=== PATIENT | female | born 1955 | race Caucasian/White ===

== ENCOUNTER → 2017-12-08 15:04 | Outpatient (CLI) | payer OTHER, SELFPAY ==
[2017-12-13 10:18] LABS: HPV Reflexed? NOT INDICATED
== END ==
PROVIDERS: Family Provider Family Medicine; PCP Family Medicine; Visit Provider Family Medicine
DX: Z01.419 Encounter for gynecological examination (general) (routine) without abnormal findings (principal)
CPT/HCPCS: 88175; G0145

== ENCOUNTER 2018-01-07 17:51 | Emergency (ER) | payer OTHER, SELFPAY ==
[2018-01-07 17:53] VITALS: BP 149/74; PULSE 54; RESP 16; TEMP 36.5; O2SAT 98; BMI 27.9
--- NOTE | 2018-01-07 18:15 | CT_ITS ---
CT Abdomen And Pelvis W/O Contrast INDICATION: RT LOWER ABD PAIN THAT RADIATES TO BACKHX:KIDNEY STONES,SEIZURES-HAD BRAIN TUMOR REMOVEDCTDI 9.65 DLP 469.96 COMPARISON: January 2011 TECHNIQUE: axial CT examination of the abdomen and pelvis with coronal and sagittal reformatted images. FINDINGS: Visualized lung bases are clear. The heart size is normal. A calcified lesion is noted in the right breast. A small hiatal hernia is noted. A lobulated 3.5 cm hypodense lesion is seen in the right hepatic lobe, on previous contrast-enhanced CT noted to represent a hemangioma. The gallbladder is unremarkable. The spleen is normal in size. Bilateral large peripelvic renal cysts are again noted and a 3 cm right cortical renal cyst. There is moderate right-sided hydronephrosis and the right ureter is distended. A 3 mm calculus seen in the right distal ureter just proximal to the ureterovesicular junction. Bowel loops are nondistended. The appendix is unremarkable. The urinary bladder is decompressed. There is no evidence of free air or free fluid. Osseous structures demonstrate superior endplate compression deformity of T12, stable compared to 2010. Degenerative disc disease at L4-L5 and L5-S1, also not significantly changed. CT/Abdomen/Pelvis without Cont IMPRESSION: 3 mm calculus in the right distal ureter just proximal to the ureterovesicular junction with right-sided hydroureter and moderate hydronephrosis. Stable bilateral peripelvic renal cysts and 3 cm right cortical renal cyst. No evidence of residual renal calculi. Stable hepatic hemangioma. Normal appendix. Hiatal hernia. at 1922 Reported and signed by: Valeria Sandoval MD Electronically Signed: Valeria Sandoval MD at 19:21 EDT Tel , Service support ,
--- NOTE | 2018-01-07 18:16 | ED.VISSUMM ---
- ER Visit Summary Date of Service: 01/07/18 Chief Complaint: Right flank pain History of Present Illness: The patient is a 62 F presenting with right flank pain. She states that this started yesterday. She had several hours of pain yesterday. It improved and this afternoon it worsened again. It feels similar to her previous kidney stones. She denies dysuria or hematuria. She has nausea with no vomiting. Denies fever. Denies other complaints. Physical Examination: Vitals are stable. Patient is afebrile. Alert no acute distress. HEENT exam is unremarkable. Neck is supple. Lungs are clear and equal bilaterally. Heart is regular rate and rhythm. Abdomen is soft nontender nondistended. No guarding or rebound Back: Right CVA tenderness Extremities are unremarkable. Skin is warm and dry. No focal neurologic deficit. Remainder of exam is unremarkable. Emergency Department Course and Treatment: Patient given morphine, Zofran. Urinalysis is unremarkable. CT flank shows 3 mm calculus in the right distal ureter just proximal to the ureterovesicular junction with right-sided hydroureter and moderate hydronephrosis. Stable bilateral peripelvic renal cysts and 3 cm right cortical renal cyst. Normal appendix. She continues to have pain was given Dilaudid, Toradol, Phenergan. On reevaluation she is feeling much improved. She is given a prescription for Percocet and Phenergan for home. She is given Dr. Jaimes for follow-up. Advised return to ED if worsening complaints. Disposition: Discharge home Impression: Urolithiasis This note was generated with [employer] dictation software. It may contain incorrect words, spelling, and punctuation that were not noted in review of the chart prior to signing ED Disposition - Plan for ED Patient: Disposition: Home or Assisted Living Chief Complaint: Abd Pain Instructions: ED Stone Renal W Colic Prescriptions: Oxycodone HCl/Acetaminophen [Percocet 5/325] 1 tablet PO Q6H PRN PRN 3 Days #12 tablet PRN Reason: Pain proMETHazine tablet [Phenergan] 25 mg PO Q6H PRN PRN #10 tablet PRN Reason: Nausea Referrals: Alhaji Fong MD [Primary Care Provider] - Black Jaimes MD [STAFF PHYSICIAN] -
[2018-01-07] MEDS: Ondansetron 4 MG/2 ML Vial IV (18:31)
[2018-01-07] MEDS: Morphine 4 MG/ML Syringe IV (18:31)
[2018-01-07] MEDS: 0.9% Normal Saline 1,000 ML 999 ML IV (18:32)
[2018-01-07 18:42] LABS: Bacteria 0 SEEN /hpf (None Seen); Mucous, Urine 0 SEEN /hpf (<or=2+); Red Blood Cells-Urine 0 SEEN /hpf (0-5); White Blood Cells 0 SEEN /hpf (0-5)
[2018-01-07 18:44] VITALS: BP 161/84; PULSE 51; RESP 16; O2SAT 100
[2018-01-07 18:48] LABS: Color, Urine Yellow (Yellow); Glucose, Dipstick Normal (Normal); Ketone-Dipstick 15 mg/dl (Negative); Leukocyte Esterase-Dipstick Negative /ul (Negative); Nitrite-Dipstick Negative (Negative); Occult Blood-Urine Negative /ul (Negative); Protein-Dipstick Negative (Negative); Specific Gravity, Urine 1.025 (1.002-1.030); Urine Bilirubin Dipstick Negative (Negative); Urine Clarity Sl. Cloudy (Clear); Urine Urobilinogen Normal (Normal)
[2018-01-07 19:11] LABS: Squamous Epithelial Cells - UA 0-5 SEEN /hpf (5-10)
[2018-01-07] MEDS: proMETHazine 25 MG/ML Syringe 6.25 MG IV (20:16)
[2018-01-07] MEDS: Ketorolac 30 MG/ML Syringe IV (20:16)
[2018-01-07] MEDS: HYDROmorphone 1 MG/ML Syringe IV (20:16)
[2018-01-07 20:36] VITALS: BP 138/77; PULSE 48; RESP 14; O2SAT 92
--- NOTE | 2018-01-07 22:01 | ED.DEP ---
ED Disposition - Plan for ED Patient: Chief Complaint: Abd Pain Instructions: ED Stone Renal W Colic Prescriptions: Oxycodone HCl/Acetaminophen [Percocet 5/325] 1 tablet PO Q6H PRN PRN 3 Days #12 tablet PRN Reason: Pain proMETHazine tablet [Phenergan] 25 mg PO Q6H PRN PRN #10 tablet PRN Reason: Nausea Referrals: Alhaji Fong MD [Primary Care Provider] - Black Jaimes MD [STAFF PHYSICIAN] -
[2018-01-07] MEDS: oxyCODONE 5 MG Tablet PO (22:28)
[2018-01-07] MEDS: proMETHazine 25 MG Tablet PO (22:29)
[2018-01-07 22:31] VITALS: BP 144/90; PULSE 49; PULSE 51; RESP 18; O2SAT 96; O2SAT 97
== END 2018-01-07 22:32 | disposition home or self-care (01) ==
PROVIDERS: Emergency Provider Emergency Medicine; Family Provider Family Medicine; PCP Family Medicine
DX: N13.2 Hydronephrosis with renal and ureteral calculous obstruction (principal); Z87.442 Personal history of urinary calculi
CPT/HCPCS: 74176; 81001; 96361; 96374; 96375; 99282; J7030; A4216; J2405

== ENCOUNTER 2018-01-13 14:08 | Day surgery (SDC) | payer OTHER, SELFPAY ==
[2018-01-13] MEDS: HYDROmorphone 1 MG/ML Syringe IV (14:50)
[2018-01-13 14:56] VITALS: BP 170/91; PULSE 82; RESP 16; TEMP 36.7; O2SAT 100; BMI 26.6
[2018-01-13] MEDS: Cefazolin 2 GM in 0.9% Normal Saline 100 ML IV (16:08)
--- NOTE | 2018-01-13 16:13 | PCM.DC.URO ---
Discharge Diet: Light diet - advance as tolerated Discharge Activity: May not drive while taking narcotic pain medications., May Shower Return to work on:: 01/18/18 Call your doctor if your incision/area has: Continuous Slow Oozing, Sudden Increased Bleeding, Increased Pain/ Swelling, Increased Redness, Foul Smelling Discharge, Swelling at the incision site Instructions: Treating Kidney Stones: Ureteroscopic Stone Removal Allergies/Adverse Reactions: Allergies Penicillins Adverse Reaction (Severe, Verified 01/07/18 17:55) Rash Medications to take at Discharge escitalopram 10 mg tablet 10 mg PO QDAY 11/24/17 acetaminophen 500 mg tablet 500 mg PO Q6H PRN 11/27/17 levetiracetam 1,000 mg tablet 1,000 mg PO BID tab 11/27/17 Oxycodone HCl/Acetaminophen [Percocet 5/325] 1 tablet PO Q6H PRN PRN 3 Days #12 tablet 01/07/18 proMETHazine tablet [Phenergan] 25 mg PO Q6H PRN PRN #10 tablet 01/07/18 Biotin 10 mg PO DAILY 01/12/18 Ciprofloxacin [Cipro] 500 mg PO BID #10 tab 01/13/18 Hydrocodone/Acetaminophen [[place] 5-325 Tablet] 1 ea PO Q4H PRN PRN 5 Days #20 tab 01/13/18 Phenazopyridine HCl [Pyridium] 100 mg PO TID PRN PRN #20 tab 01/13/18 Tamsulosin HCl [Flomax] 0.4 mg PO DAILY #10 cap.er.24h 01/13/18 The following prescriptions were given: Hydrocodone/Acetaminophen [[place] 5-325 Tablet] 1 ea PO Q4H PRN PRN 5 Days #20 tab PRN Reason: Pain Phenazopyridine HCl [Pyridium] 100 mg PO TID PRN PRN #20 tab PRN Reason: burning. Tamsulosin HCl [Flomax] 0.4 mg PO DAILY #10 cap.er.24h Ciprofloxacin [Cipro] 500 mg PO BID #10 tab Primary Care Physician: Alhaji Fong MD [Primary Care Provider] - Please Follow Up With: Black Jaimes MD When: ThursdayJanuary 19 at 9:15 am to remove stent
--- NOTE | 2018-01-13 16:38 | OP.PCM_ITS ---
Report of Operation Date of Procedure: 01/13/18 Pre-Operative Diagnosis: Right ureteral calculi causing severe renal colic Post-Operative Diagnosis: Same Surgery/Procedure Performed:: Cystoscopy, balloon dilation of the right ureter, right ureteroscopy basket extraction of stone and right stent placement Description of Surgical Findings:: 62-year-old female presented to the office with severe renal colic from the distal right ureteral calculi about 3 mm in size but she was in so much pain and discomfort not controlled by medication therefore recommended intervention. Patient was taken back to the operating room at the smooth induction of anesthesia she was placed supine on the table the urethra and vaginal area were prepped and draped in usual sterile fashion. Dilated the urethra with a 17 Hungarian sound and then used the loading unit operator seating and place a 21 Hungarian rigid cystourethroscope into the bladder, immediately could see an inflamed swollen right distal ureter. Used a Glidewire and was able to get into the ureter and advanced past the stone. I then used a balloon dilator the 12 Hungarian 10 cm balloon dilator and balloon dilated the distal ureter. I then was able to perform rigid ureteroscopy got into the distal ureter fairly easily and then used the basket and extracted a 3 mm stone from the distal ureter. Then I loaded the stent up over the wire but the stent in place with a string for extraction a few days. Emptied the bladder and patient anesthetic is being reversed. Type of Anesthesia:: General Drains: stent right side - Admit VTE Documentation VTE Present on Admission: No VTE Mechan Device Prophylaxis: SCD's VTE Pharm Prophylaxis ordered?: No Reason prophylaxis not ordered:: Treatment Not Indicated
[2018-01-13 16:45] VITALS: BP 134/76; BP 170/91; PULSE 69; RESP 18; TEMP 36.7; O2SAT 95
[2018-01-13] MEDS: Ketorolac 15 MG/ML Vial IV (16:53)
[2018-01-13 17:00] VITALS: BP 140/85; BP 170/91; PULSE 72; RESP 18; O2SAT 100
[2018-01-13 17:08] VITALS: BP 143/88; BP 170/91; PULSE 70; RESP 18; TEMP 36.6; O2SAT 100
[2018-01-13 17:28] VITALS: BP 170/91
--- NOTE | 2018-01-14 | CALC_PTH ---
PATIENT: CHIRAG RODRÍGUEZ [place] [facility] [place][id number] AGE/SX: 62/F ROOM: RE01/13/[address]: Dr. Black Jaimes MD : 1955 BED: DIS: 01/13/2018 SPEC #: [id number] RECD: 01/14/18 12:20 STATUS: ROCK YOLANDE #: [id number] PINKY: 01/14/18 00:[address]: Black Jaimes DEPT: SURGICAL PATHOLOGY RECD BY: Denilson Aleman ENTERED: 01/14/18 12:20 SP TYPE: Calculi OTHR DR: Dr. Alhaji Fong MD Tissues: CALCULI Procedures: Surgery Specimen Level I HEADER OPERATION: Right ureteroscopy, basket stone extraction PRE-OP DIAGNOSIS: Right ureteral calculus TISSUE SUBMITTED: Calculi, urinary GROSS DIAGNOSIS Right ureteral calculus, removal: Unremarkable calculus (gross diagnosis only). AM:vernon 01/15/18 COMMENT The calculus is submitted in its entirety for chemical stone analysis. The results from this study will be reported separately. GROSS DESCRIPTION Received is one container labeled with the patient's name and designated calculi urinary. The specimen consists of a single irregular fragment of kolb calculus measuring 0.2 x 0.2 x 0.1 cm. The calculus is submitted in its entirety for chemical stone analysis. / AM:vernon 01/14/18 TC:5 CPT: 07175
[2018-01-22 14:07] LABS: Ca Oxalate, Dihydrate 10 % (.); Ca Oxalate, Monohydrate 85 % (.)
== END 2018-01-13 17:40 | disposition home or self-care (01) ==
LOC: SDC 14:09 → AC 14:11
PROVIDERS: Family Provider Family Medicine; PCP Family Medicine; Visit Provider Urology
PROC: 0TJ98ZZ Inspection of Ureter, Via Natural or Artificial Opening Endoscopic (ICD-10-PCS; CPT 52352; principal; 2018-01-13 15:40)
DX: N20.1 Calculus of ureter (principal); Z87.442 Personal history of urinary calculi; G40.909 Epilepsy, unspecified, not intractable, without status epilepticus; F32.9 Major depressive disorder, single episode, unspecified; F41.9 Anxiety disorder, unspecified; I49.1 Atrial premature depolarization; I49.3 Ventricular premature depolarization; R00.0 Tachycardia, unspecified; Z79.899 Other long term (current) drug therapy
CPT/HCPCS: 52332; 52352; 76000; 82360; 88300; J7120; C1769; C2617

== ENCOUNTER 2018-04-05 07:10 | Day surgery (SDC) | payer OTHER, SELFPAY ==
[2018-04-05 07:25] VITALS: BP 124/64; PULSE 53; RESP 16; TEMP 36.6; O2SAT 100; BMI 26.2
--- NOTE | 2018-04-05 08:05 | HP.PCM_ITS ---
History and Physical Date of Admission: 04/05/18 HISTORY AND PHYSICAL ? Mary Dumont 1955 ? REFERRING PHYSICIAN: ~~Grey Ortiz, DO ? CHIEF COMPLAINT: ~~LLQ pain ? HPI: The patient is a 62 year old female referred for endoscopy. ~Mary notes the following GI complaints: ~~Mary notes abdominal pain. ~~~The pain occurs in the following locations: ~LLQ . ~Mary denies~diarrhea. ~~Mary denies~ constipation. ~Mary denies~a change in bowel habits. ~Mary denies~melena. ~ Mary denies~bright red blood per rectum. ~~~Mary denies~hemorrhoids. ~~She feels her pain may be due to her Keppra dose, but she is due for colonoscopy due to a personal history of colon polyps ? The patient ~notes no history of upper GI complaints. ? Mary has ~undergone prior endoscopy. ~She underwent colonoscopy in March 27, 2015 which demonstrated an adenomatous polyp. ~The patient also has a first- degree relative with colon cancer. ? The patient underwent a craniotomy in October this year for seizures and had removal of a left medullary tumor. ? The patient had a kidney stone earlier this year and underwent sedation for treatment of her kidney stone at [facility] since her craniotomy. ~She had no untoward anesthetic events. ? The patient is being seen by me today at the request of Dr. Alhaji Fong MD~ for my opinion and advice regarding lower quadrant pain and follow-up for personal history of colon polyps and family history of colon cancer. ? ? PAST MEDICAL HISTORY PAST MEDICAL HISTORY Diagnosis Date ? Arrhythmia ? ? Arthritis ? ? Depression 04/27/2017 ? Diffuse cystic mastopathy ? ? Dizziness, nonspecific ? ? Kidney stone 04/27/2017 ? NEGATIVE MEDICAL HISTORY ? ? Seizure (HCC) ? ? Syncope ? ? ? PAST SURGICAL HISTORY PAST SURGICAL HISTORY Procedure Laterality Date ? COLONOS W/REM POLYP SNARE ? 03/27/15 ? adenomatous polyp - 3 year follow up ? COLONOSCOP W/ OR W/O BRSH SPEC ? 04/19/2007 ? normal ? REDUCTION OF LARGE BREAST ? 1990 ? ? bilateral ? W KIT CRAINIAL ACSS TWIST DRILL Left 10/2017 ? for medullary tumor ? ? CURRENT MEDICATIONS ? Current Outpatient Prescriptions: levETIRAcetam (KEPPRA) 1,000 mg tablet Take 1 tablet by mouth twice daily. escitalopram oxalate (LEXAPRO) 10 mg tablet TAKE 1 TABLET DAILY docusate sodium (COLACE) 100 mg capsule Take 1 capsule by mouth twice daily as needed for Constipation. (Patient not taking: Reported on 11/23/2017 ) acetaminophen (TYLENOL EXTRA STRENGTH) 500 mg tablet Take 500 mg by mouth as needed. CALCIUM CARBONATE/VITAMIN D3 (CALTRATE WITH VITAMIN D3 ORAL) Take 1 tablet by mouth once daily. Cholecalciferol, Vitamin D3, (VITAMIN D-3) 2,000 unit cap Take 2,000 Units by mouth once daily. BIOTIN ORAL Take 1 tablet by mouth once daily. ? No current facility-administered medications for this visit. ? ALLERGIES: Penicillins ? PERSONAL HISTORY: SOCIAL HISTORY Social History ~~Marital status: ~~~~~~~~~~~~Spouse name: ~~~~~~~~~~~~~~~~~~ ~~Years of education: ~~~~~~~~~~~~~~~~Number of children: ~~~~~~~~~~ ? Social History Main Topics ~~Smoking status: Never Smoker ~~~~~~~~~~~~~~~~~~~~~~~~~~~~~~~~~~~~~~~~~~~~~~~~~ ~~~~~~~~ ? ~~Smokeless tobacco: Never Used ~~~~~~~~~~~~~~~~~~~ ~~Alcohol use: Yes ~~~~~~~~ ~~~~~Comment: SOCIALLY ~~Drug use: No ~~~~~~~~~ ~~Sexual activity: Yes ~~~~~~~~~~~~~~Partners with: Male ~~~~~ control/protection: Vasectomy ? ? FAMILY HISTORY: FAMILY HISTORY FAMILY HISTORY Problem Relation Age of Onset ? Breast Cancer Other ? ? ? maternal cousin ? Breast Cancer Maternal Aunt ? ? Coronary Artery Disease Father ? ? Heart Father ? ? Hypertension Father ? ? Stroke Father ? ? Colon Cancer Father ? ? Heart Paternal Grandfather ? ? Psychiatry Paternal Grandmother ? ? Cancer Other ? ? ? colon,abdomen, and appendix ? Arthritis Brother ? ? REVIEW OF SYMPTOMS: ~~The review of systems data was entered by the nurse and reviewed by me ? Nursing Notes: [place] ANA LAURA ~02/25/2018 ~9:27 AM ~Signed REVIEW OF SYSTEMS: ~~~~~General:~~~The patient denies fatigue, NOTES weight loss, denies weight gain, denies feeling hot, and denies feelings of cold. ~~~~~Eyes: ~The patient denies glaucoma, NOTES eye injury/surgery, does not wear glasses or contacts. ~~~~~Ear/Nose/Throat: ~The patient NOTES allergies, denies hayfever, denies ear infections, and denies bloody noses. ~~~~~Cardiovascular: ~The patient denies chest pain, denies heart disease, denies high blood pressure,denies cardiac stent, denies prior heart attack, denies irregular heart beat, NOTES high cholesterol, ~denies poor circulation, denies heart failure, other cardiac issues, denies claudication, denies cold feet, denies peripheral arterial stent. ~~~~~Respiratory: ~The patient denies tuberculosis, denies pneumonia, denies frequent cough, denies pulmonary embolism, denies shortness of breath, and denies coughing up blood. ~~~~~Gastrointestinal: ~The patient denies difficulty swallowing, denies acid reflux, denies ulcers, denies vomiting, denies jaundice/hepatitis, denies gallbladder problems, denies black or tarry stools, denies hemorrhoids, denies bleeding from rectum, denies diverticulitis, NOTES constipation, denies diarrhea , denies loss of stool control, and denies hernias. ~~~~~Kidney/Bladder: ~The patient NOTES kidney stones, denies urine infections, and denies bloody urine. ~~~~~Skin: ~The patient denies a history of skin cancer, denies bleeding/ changing moles, and denies a history of skin rash. ~~~~~Neurologic: ~The patient NOTES a history of epilepsy/convulsions, NOTES headaches, denies head/spinal injuries, and denies stroke/TIA. ~~~~~Psychiatric: ~The patient denies psychiatric medications, NOTES depression , and denies voices, denies substance abuse. ~~~~~Endocrine: ~The patient denies thyroid disorders, denies diabetes, and denies hormonal problems. ~~~~~Hematologic: ~The patient NOTES a history of bruising, NOTES bleeding, and denies anemia, denies blood clots. ~~~~~Infections: ~The patient denies a history of measles and mumps, denies rheumatic fever, and denies sexually transmitted diseases. ~~~~~Musculoskeletal: ~The patient NOTES back pain/injury, denies back problems , NOTES sciatica, denies knee/foot trouble, denies arthritis, or denies gout. ? ? When was patient's last Mammogram screening? 02/22 ? ? ~Last Colonoscopy: ~? ? [place] LPN ~ PHYSICAL EXAMINATION: ? General: ~The patient is 62 year old female, well nourished, well hydrated in no acute distress. ~The patient is oriented to time, place, and person. ? VITALS: Blood pressure 122/68, pulse 68, weight 72.7 kg (160 lb 3.2 oz), last menstrual period 06/10/2004.~Body mass index is 26.25 kg/m?.~ ? HEENT: ~Normal cephalic, ataumatic, pupils are equally round, sclera are anicteric, mucous membranes are moist, oropharynx is clear. ~Neck has no masses , asymmetry or lymphadenopathy. ~Thyroid is unremarkable. ? Respiratory: ~Clear to auscultation and percussion. ~Normal respiratory excursion and pattern. ? Cardiac: ~Examination is regular rate and rhythm. ? Abdominal exam: ~Soft, nontender, ~with no palpable masses. ~No hepatosplenomegaly. ~No palpable hernias. ? Rectal exam: exam deferred ? Extremities: ~no clubbing, cyanosis or edema. ~No adenopathy. ? Other: ? LABORATORY VALUES: As Noted ? RADIOLOGIC STUDIES: ~As Noted ? Assessment ~ IMPRESSION: Personal history of colon polyps, family history of colon cancer, left lower quadrant pain, recent craniotomy ? PLAN: ~I plan to perform lower~endoscopy. ~~We discussed the risks and benefits of the planned endoscopy. ~I have informed the patient that complications can occur including failure to complete the endoscopy and perforation. ~The patient had the opportunity to ask questions concerning the planned endoscopy. ~My staff has also explained the procedure to the patient in understandable terms and has given the patient printed material concerning the procedure. ~The patient freely consents to surgery. ? I plan to use golytely bowel preparation for endoscopy ? I plan to perform the procedure under monitored anesthetic care. ~The patient requests [facility]. ? ? Diagnoses: (Z80.0) Family history of colon cancer ~(primary encounter diagnosis) (Z86.010) Personal history of colonic polyps (R10.32) LLQ pain (D33.2) Benign neoplasm of brain, unspecified brain region (HCC) ? A letter was sent to Dr. Alhaji Fong MD~indicating the above finding for this patient. ~~ Return to Clinic: The patient is instructed to follow-up with me after the testing has been completed. ? Anthony Fraga MD
[2018-04-05 08:27] VITALS: BP 122/70; BP 124/64; PULSE 57; RESP 14; TEMP 36.3; O2SAT 100
--- NOTE | 2018-04-05 08:29 | PCM.OPRPT ---
Report of Operation Date of Procedure: 04/05/18 Pre-Operative Diagnosis: PERSONAL HISTORY OF COLON POLYPS, FAMILY HISTORY OF COLON CANCER Post-Operative Diagnosis: PERSONAL HISTORY OF COLON POLYPS, FAMILY HISTORY OF COLON CANCER, NORMAL COLONSCOPY Surgery/Procedure Performed:: COLNOSCOPY carpet cutter: None Type of Anesthesia:: MAC Anesthesiologist: Niels Bustos - ASA3 Specimen's removed: NONE Description of Procedure: The patient was brought to the endoscopy suite. Sign in was performed verifying patient, site, planned procedure, critical nursing information, the patient was monitored with cardiac, pulse oximetric, and blood pressure monitoring devices. Monitored anesthetic care was provided for sedation. Following IV sedation, the patient was positioned for colonoscopy. A digital rectal exam was performed which revealed no palpable abnormalities The video colonoscope was inserted and advanced to the cecum as verified by the ileocecal valve, cecal base anatomic features and palpation. the cecum, ileocecal valve, ascending colon, hepatic flexure, splenic flexure, descending colon and rectosigmoid all were unremarkable. The scope was retroflexed and the internal anal verge appeared unremarkable. The patient tolerated the procedure well and was brought to recovery in stable condition. The patient has a family history of colon cancer. I recommend 5 year follow-up colonoscopy. The patient does not need to follow up in the office unless they have additional questions. - Admit VTE Documentation VTE Present on Admission: No VTE Mechan Device Prophylaxis: SCD's
[2018-04-05 08:30] VITALS: BP 118/68; BP 124/64; PULSE 59; RESP 14; O2SAT 100
--- NOTE | 2018-04-05 08:32 | OP.PCM_ITS ---
Report of Operation Date of Procedure: 04/05/18 Pre-Operative Diagnosis: PERSONAL HISTORY OF COLON POLYPS, FAMILY HISTORY OF COLON CANCER Post-Operative Diagnosis: PERSONAL HISTORY OF COLON POLYPS, FAMILY HISTORY OF COLON CANCER, NORMAL COLONSCOPY Surgery/Procedure Performed:: COLNOSCOPY manager leadership development: None Type of Anesthesia:: MAC Anesthesiologist: Niels Bustos - ASA3 Specimen's removed: NONE Description of Procedure: The patient was brought to the endoscopy suite. Sign in was performed verifying patient, site, planned procedure, critical nursing information, the patient was monitored with cardiac, pulse oximetric, and blood pressure monitoring devices. Monitored anesthetic care was provided for sedation. Following IV sedation, the patient was positioned for colonoscopy. A digital rectal exam was performed which revealed no palpable abnormalities The video colonoscope was inserted and advanced to the cecum as verified by the ileocecal valve, cecal base anatomic features and palpation. the cecum, ileocecal valve, ascending colon, hepatic flexure, splenic flexure, descending colon and rectosigmoid all were unremarkable. The scope was retroflexed and the internal anal verge appeared unremarkable. The patient tolerated the procedure well and was brought to recovery in stable condition. The patient has a family history of colon cancer. I recommend 5 year follow-up colonoscopy. The patient does not need to follow up in the office unless they have additional questions. - Admit VTE Documentation VTE Present on Admission: No VTE Mechan Device Prophylaxis: SCD's
[2018-04-05 08:35] VITALS: BP 101/68; BP 124/64; PULSE 65; RESP 14; O2SAT 100
[2018-04-05 08:37] VITALS: BP 124/64; BP 97/85; PULSE 62; RESP 14; TEMP 36.4; O2SAT 100
[2018-04-05 09:05] VITALS: BP 124/64
== END 2018-04-05 09:09 | disposition home or self-care (01) ==
LOC: EN 07:12 → AC 07:12
PROVIDERS: Family Provider Family Medicine; PCP Family Medicine; Visit Provider Surgery
PROC: 0DJD8ZZ Inspection of Lower Intestinal Tract, Via Natural or Artificial Opening Endoscopic (ICD-10-PCS; CPT 45378; principal; 2018-04-05 07:55)
DX: Z86.010 Personal history of colon polyps (principal); R10.32 Left lower quadrant pain; Z80.0 Family history of malignant neoplasm of digestive organs; I49.1 Atrial premature depolarization; I49.3 Ventricular premature depolarization; F32.9 Major depressive disorder, single episode, unspecified; M19.90 Unspecified osteoarthritis, unspecified site; Z98.890 Other specified postprocedural states; Z86.69 Personal history of other diseases of the nervous system and sense organs; Z79.899 Other long term (current) drug therapy
CPT/HCPCS: 45378; J7120

== ENCOUNTER → 2018-07-13 10:49 | Outpatient (CLI) | payer OTHER, SELFPAY ==
[2018-07-13 12:46] LABS: Cholesterol 261 mg/dL (200); Glucose 84 mg/dL (74-106); Hemoglobin A1c 5.8 % (4.2-6.3); High Density Lipoprotein 88 mg/dL; Triglycerides 76 mg/dL; Very Low Density Lipoprotein 15 mg/dL (5-40)
== END ==
PROVIDERS: Family Provider Family Medicine; PCP Family Medicine; Referring Provider Family Medicine; Visit Provider Family Medicine
DX: E78.5 Hyperlipidemia, unspecified (principal); R73.9 Hyperglycemia, unspecified
CPT/HCPCS: 36415; 80061; 82947; 83036

== ENCOUNTER → 2019-01-14 14:36 | Outpatient (CLI) | payer OTHER, SELFPAY ==
[2018-12-13 10:05] VITALS: BMI 25.9
--- NOTE | 2019-01-14 14:46 | CT_ITS ---
STUDY: CT ABDOMEN AND PELVIS WITH CONTRAST REASON FOR EXAM: Female, 63 years old. Left lower quadrant pain RADIATION DOSAGE (If Supplied By Facility): CTDIvol = ( 15.86 ) mGy, DLP = ( 1363.76 ) mGycm TECHNIQUE: Transaxial images were obtained from the dome of the diaphragm to the symphysis pubis without oral contrast. 100CC IV/Oral Isovue 300 was administered. Sagittal and coronal images were reconstructed. Individualized dose optimization techniques were used for this CT. COMPARISON: Prior study of 01/07/2018 FINDINGS: The visualized lung bases are unremarkable. The visualized portions of the heart are within normal limits. There is an enhancing 3.6 cm lesion of the posterior right hepatic lobe with a typical appearance of a hemangioma. There are several additional subcentimeter probable cysts of the liver. Normal gallbladder and extrahepatic biliary system. Normal spleen. There is mild dilatation of the pancreatic duct measuring up to 3 mm. Normal bilateral adrenal glands. There is a 5.5 cm right renal cyst. There are multiple left renal parapelvic cysts there is no hydronephrosis. There is a small hiatal hernia. Normal small intestine. Normal colon. The appendix is visualized and appears normal. Normal abdominal aorta. Normal inferior vena cava. Normal retroperitoneum. Normal urinary bladder. The uterus and adnexal structures are unremarkable. Normal abdominal wall. There are degenerative changes of the lumbar spine at the L4-5 and L5-S1 level. There is old compression deformity of the superior endplate of T12, stable in the interval. CT/Abdomen/Pelvis WITH Contrast IMPRESSION: 1. Enhancing 3.6 cm lesion of the posterior right hepatic lobe with a typical appearance of hemangioma. This is similar in size to the prior study of 01/07/2018. There are several additional subcentimeter probable cysts of the liver. 2. Mild dilatation pancreatic duct measuring up to 3 mm. 3. 5.5 cm right renal cyst. Multiple left renal parapelvic cysts. 4. Small hiatal hernia. 5. Degenerative changes of the lumbar spine. Old compression deformity of the superior endplate of T12, stable in the interval. 6. There is no evidence of free intra-abdominal or intrapelvic air, fluid, or inflammatory process. Electronically Signed: Christian Gomez MD at 16:23 EDT , Service support ,
[2019-01-14 15:06] LABS: CREATININE FINGERSTICK 0.8 mg/dL (0.55-1.02)
== END ==
PROVIDERS: Family Provider Family Medicine; PCP Family Medicine; Referring Provider Family Medicine; Visit Provider Family Medicine
DX: R10.32 Left lower quadrant pain (principal)
CPT/HCPCS: 74177; Q9967

== ENCOUNTER → 2019-04-08 08:14 | Outpatient (CLI) | payer OTHER, SELFPAY ==
[2018-12-13 10:05] VITALS: BMI 25.9
--- NOTE | 2019-04-08 08:17 | BI_ITS ---
MAMMOGRAPHY - BILATERAL SCREENING REASON FOR EXAM: Female, 63 years old. Routine annual screening examination. PERTINENT HISTORY: Aunt with breast cancer. History of prior bilateral breast reduction surgery. TECHNIQUE: Digital bilateral breast karine (3D mammographic acquisition) in the CC and MLO projections. 2-D mediolateral oblique (MLO) and craniocaudad (CC) views of both breasts were obtained. CAD: Full Field Digital Mammography with Computer Added Detection was performed. COMPARISON: Comparison is made with prior outside examination dated February 17, 2018. FINDINGS: Breast Composition: The breasts are heterogeneously dense, which may obscure small masses. There are no dominant masses or suspicious calcifications. Stable 1.6 cm x 1.2 cm calcified nodule in the deep slightly inferior central portion of the right breast suggestive of a calcifying fibroadenoma. No other significant abnormalities are identified. There has been no significant change since the prior study. BI/SCREEN MAMM (CAD) W/KARINE BILAT IMPRESSION: Stable bilateral screening mammogram. Yearly follow-up mammogram recommended. (A) ASSESSMENT CATEGORY: BIRADS Category 2: Benign. A letter regarding these results will be sent to the patient by the facility within 30 days. Approximately 10% of breast cancers are not detected by mammography. A normal mammogram should not delay biopsy of a clinically suspicious abnormality. [id number] Electronically Signed: Eric Judge, at 10:06 EDT , Service support ,
--- NOTE | 2019-04-08 09:29 | MRI_ITS ---
STUDY: MR PELVIS WITH T WITHOUT CONTRAST REASON FOR EXAM: Female, 63 years old. Left ovarian cyst/mass. Left-sided abdominal and pelvic discomfort on and off for several years. TECHNIQUE: Standardized fat and water weighted pulse sequences were obtained in all 3 orthogonal planes, pre-and post contrast administration. 15 IV Dotarem was administered for the contrast portion of the examination. COMPARISON: CT abdomen and pelvis 01/14/2018, 01/07/2018. FINDINGS: On prior CT imaging of 01/14/2019, normal appearing bilateral ovaries, no adnexal mass or cyst, normal appearance of uterus, no pelvic lymphadenopathy. There is no inguinal or iliac chain lymphadenopathy. No perirectal lymphadenopathy. Normal features of the evaluated portions of the small and large bowel. Normal distal ureters, urinary bladder, and retroverted uterus with normal slender endometrium and normal myometrium. Normal fallopian tubes. Diminutive normal right ovary containing a very tiny follicle measuring about 2 mm. Normal size of the left ovary. The left ovary contains 4 follicles, the largest of which measures 10 mm. Simple cystic features. Otherwise unremarkable morphology. There is normal enhancement of the adnexal vessels. There is no cul-de-sac free fluid. MRI/Pelvis W/WO Contrast IMPRESSION: Small follicles of the left ovary, the largest of which measures 10 mm. Unremarkable right ovary. No acute intrapelvic process is evident. Electronically Signed: Anthony Winter MD at 14:13 EDT Tel , Service support ,
[2019-04-08 10:21] LABS: CREATININE FINGERSTICK < 0.6 mg/dL (0.55-1.02); EGFR FINGERSTICK > 60.0000 mL/min (>60)
== END ==
PROVIDERS: Family Provider Family Medicine; PCP Family Medicine; Referring Provider Obstetrics & Gynecology; Visit Provider Obstetrics & Gynecology
DX: Z12.31 Encounter for screening mammogram for malignant neoplasm of breast (principal); Z80.3 Family history of malignant neoplasm of breast; N83.202 Unspecified ovarian cyst, left side; R10.2 Pelvic and perineal pain
CPT/HCPCS: 72197; 77063; 77067; A9575

== ENCOUNTER → 2019-04-21 10:18 | Outpatient (CLI) | payer OTHER, SELFPAY ==
[2018-12-13 10:05] VITALS: BMI 25.9
[2019-04-21 12:02] LABS: Absolute Lymphocyte Count 1.57 X10^3/uL (0.83-4.51); Absolute Neutrophil Count 1.5 X10^3/uL (2.0-7.7); Basophil# 0.05 X10^3/uL; Basophil% 1.4 % (0-1); Eosinophils% 2.8 % (0-5); Hematocrit 39.7 % (37-47); Hemoglobin 12.9 g/dL (12.0-15.0); Lymphocyte # 1.57 X10^3/ul (4.0); Lymphocyte % 44.4 % (19-41); Mean Corp Hgb Conc 32.5 g/dL (32-36); Mean Corpuscular Hgb 29.2 pg (27.0-32.0); Mean Corpuscular Volume 89.8 fL (81-99); Mean Platelet Vol. 8.8 fl (6.2-12.0); Monocyte# 0.32 X10^3/uL; NRBC Flagged by Analyzer 0 % (0-5); Neutrophil # 1.49 X10^3/uL (2.7-7.7); Neutrophil % 42.1 % (47-70); Platelet Count 234 K/mm3 (150-450); RBC Distribution Width CV 13.9 % (11.6-14.6); RBC Distribution Width SD 45.5 fl (35.1-43.9); Red Blood Count 4.42 M/mm3 (4.2-5.4); White Blood Count 3.5 K/mm3 (4.4-11.0)
[2019-04-21 12:17] LABS: Vitamin D,25 Hydroxy 55.2 ng/mL (29.95-100.01)
[2019-04-21 12:21] LABS: Anion Gap 6 (5-15); BUN 14 mg/dL (7-18); Calcium,Total 8.8 mg/dL (8.5-10.1); Chloride 109 mmol/L (98-107); Cholesterol 209 mg/dL (200); Creatinine, Serum 0.74 mg/dL (0.55-1.02); EST Glomerular Filtration Rate 85 mL/min (>60); Est Glom Filt Rate - Afr Amer 102 mL/min (>60); Glucose 82 mg/dL (74-106); High Density Lipoprotein 80 mg/dL; Potassium 4.1 mmol/L (3.5-5.1); Sodium Level 142 mmol/L (136-145); Thyroid Stim Hormone (TSH) 3.11 uIU/mL (0.358-3.74); Triglycerides 70 mg/dL; Very Low Density Lipoprotein 14 mg/dL (5-40)
[2019-04-21 17:52] LABS: Hemoglobin A1c 5.5 % (4.2-6.3)
== END ==
PROVIDERS: Family Provider Family Medicine; PCP Family Medicine; Referring Provider Family Medicine; Visit Provider Family Medicine
DX: E03.9 Hypothyroidism, unspecified (principal); G40.109 Localization-related (focal) (partial) symptomatic epilepsy and epileptic syndromes with simple partial seizures, not intractable, without status epilepticus; E78.5 Hyperlipidemia, unspecified; R53.83 Other fatigue; R73.9 Hyperglycemia, unspecified; R03.0 Elevated blood-pressure reading, without diagnosis of hypertension
CPT/HCPCS: 36415; 80048; 80061; 82306; 83036; 84443; 85025

== ENCOUNTER 2019-08-15 11:50 | Day surgery (SDC) | payer OTHER, SELFPAY ==
[2018-12-13 10:05] VITALS: BMI 25.9
--- NOTE | 2019-08-14 11:18 | HP.PCM_ITS ---
History and Physical Date of Admission: 08/15/19 HISTORY AND PHYSICAL ? Mary Dumont 1955 ? REFERRING PHYSICIAN: ??Self ? CHIEF COMPLAINT: ??Change In Bowel Habits ? HPI: The patient is a 63 year old female referred for endoscopy. ?Mary notes worsening left lower quadrant discomfort with what she describes as pain which doubles her over at night. ? ? I had seen the patient in the past for left-sided abdominal pain which was more mild. ? At that time in mid 2017, Mary notes the following GI complaints: ??Mary notes abdominal pain. ???The pain occurs in the following locations: ?LLQ . ?Mary denies diarrhea. ??Mary denies constipation. ?Mary denies a change in bowel habits. ?Mary denies melena. ?Mary denies bright red blood per rectum. ???Mary denies hemorrhoids. ??She feels her pain may be due to her Keppra dose, but she is due for colonoscopy due to a personal history of colon polyps ? The patient ?notes no history of upper GI complaints. ? Mary has ?undergone prior endoscopy. ?She underwent colonoscopy in March 27, 2015 which demonstrated an adenomatous polyp. ?The patient also has a first-d egree relative with colon cancer. ? The patient underwent a craniotomy in October this year for seizures and had removal of a left medullary tumor. ? The patient had a kidney stone earlier this year and underwent sedation for treatment of her kidney stone at [facility] since her craniotomy. ?She had no untoward anesthetic events. ? The patient is being seen by me today at the request of Dr. Alhaji Fong MD for my opinion and advice regarding lower quadrant pain and follow-up for personal history of colon polyps and family history of colon cancer ? I performed lower endoscopy on the April 05, 2018. ?The patient was found to have an unremarkable colonoscopy. ? The patient notes still some left-sided complaints since the procedure. ?Overall, she feels this is related to her medication for her seizure disorder-Keppra. ?She notes that her symptoms are less severe. ?Since she decreased her overall dose. ? The patient now noted worsening pain. ?She is also noted that her bowel movements have changed to intermittent diarrhea. ? She underwent CT scan of the abdomen and pelvis at [facility] in January which demonstrated: ? IMPRESSION: 1. ?Enhancing 3.6 cm lesion of the posterior right hepatic lobe with a typical appearance of hemangioma. ?This is similar in size to the prior study of 01/07/2018. ?There are several additional subcentimeter probable cysts of the liver. 2. ?Mild dilatation pancreatic duct measuring up to 3 mm. 3. ?5.5 cm right renal cyst. ?Multiple left renal parapelvic cysts. 4. ?Small hiatal hernia. 5. ?Degenerative changes of the lumbar spine. ?Old compression deformity of the superior endplate of T12, stable in the interval. 6. ?There is no evidence of free intra-abdominal or intrapelvic air, fluid, or inflammatory process. ? ? ? 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 ?She had an abdominal MRI obtained ?on April 08, 2019 which demonstrated: ? IMPRESSION: Small follicles of the left ovary, the largest of which measures 10 mm. Unremarkable right ovary. No acute intrapelvic process is evident. ? ? The patient is being seen by me today at the request of Dr. Yepez for my opinion and advice regarding persistent and now worsening pelvic pain without more specific abnormal findings.? ? ? PAST MEDICAL HISTORY PAST MEDICAL HISTORY Diagnosis Date ? Arrhythmia ? ? Arthritis ? ? Depression 04/27/2017 ? Diffuse cystic mastopathy ? ? Dizziness, nonspecific ? ? Kidney stone 04/27/2017 ? NEGATIVE MEDICAL HISTORY ? ? Seizure (HCC) ? ? Syncope ? ? ? PAST SURGICAL HISTORY PAST SURGICAL HISTORY Procedure Laterality Date ? COLONOS W/REM POLYP SNARE ? 03/27/15 ? adenomatous polyp - 3 year follow up ? COLONOSCOP W/ OR W/O BRS SPEC ? 04/19/2007 ? normal ? COLONOSCOPY ? 04/05/2018 ? normal, repeat in 5 years due to pers Hx polyps and fam Hx colon cancer ? PAST SURGICAL HISTORY OF ? ? ? stent placement for kidney stone ? REDUCTION OF LARGE BREAST ? 1990 ? ? bilateral ? W KIT CRAINIAL ACSS TWIST DRILL Left 10/2017 ? for medullary tumor ? ? CURRENT MEDICATIONS Current Outpatient Medications Medication Sig ? atorvastatin (LIPITOR) 10 mg tablet ? ? levETIRAcetam (KEPPRA) 500 mg tablet Take 1 tablet by mouth twice daily. ? escitalopram oxalate (LEXAPRO) 10 mg tablet TAKE 1 TABLET DAILY ? acetaminophen (TYLENOL EXTRA STRENGTH) 500 mg tablet Take 500 mg by mouth as needed. ? Cholecalciferol, Vitamin D3, (VITAMIN D-3) 2,000 unit cap Take 2,000 Units by mouth once daily. ? BIOTIN ORAL Take 1 tablet by mouth once daily. ? No current facility-administered medications for this visit.? ? ALLERGIES:?Penicillins ? PERSONAL HISTORY:? SOCIAL HISTORY Social History ? Tobacco Use ? Smoking status: Never Smoker ? Smokeless tobacco: Never Used Substance Use Topics ? Alcohol use: Yes ? ? Comment: SOCIALLY ? Drug use: No ? FAMILY HISTORY:? FAMILY HISTORY FAMILY HISTORY Problem Relation Age of Onset ? Breast Cancer Other ?maternal cousin ? Breast Cancer Maternal Aunt ? ? Coronary Artery Disease Father ? ? Heart Father ? ? Hypertension Father ? ? Stroke Father ? ? Colon Cancer Father ? ? Heart Paternal Grandfather ? ? Psychiatry Paternal Grandmother ? ? Cancer Other ?colon,abdomen, and appendix ? Arthritis Brother ? ? REVIEW OF SYMPTOMS: ??The review of systems data was entered by the nurse and reviewed by me ? Nursing Notes: Maritza Ruffin RN ?07/29/2019 ?1:28 PM ?Signed REVIEW OF SYSTEMS: ?General:???The patient denies fatigue, denies weight loss, denies weight gain, denies feeling hot, and denies feelings of cold. ?Eyes: ?The patient denies glaucoma, NOTES eye injury/surgery, does not wear glasses or contacts. ?Ear/Nose/Throat: ?The patient NOTES allergies, denies hayfever, denies ear infections, and denies bloody noses. ?Cardiovascular: ?The patient denies chest pain, denies heart disease, denies high blood pressure,denies cardiac stent, denies prior heart attack, denies irregular heart beat, NOTES high cholesterol, ?denies poor circulation, denies heart failure, other cardiac issues, denies claudication, denies cold feet, denies peripheral arterial stent. ?Respiratory: ?The patient denies tuberculosis, denies pneumonia, denies frequent cough, denies pulmonary embolism, denies shortness of breath, and denies coughing up blood. ?Gastrointestinal: ?The patient denies difficulty swallowing, denies acid reflux, denies ulcers, denies vomiting, denies jaundice/hepatitis, denies gallbladder problems, denies black or tarry stools, denies hemorrhoids, denies bleeding from rectum, denies diverticulitis, NOTES constipation, denies d iarrhea, denies loss of stool control, and denies hernias. ?Kidney/Bladder: ?The patient NOTES kidney stones, denies urine infections, and denies bloody urine. ?Skin: ?The patient denies a history of skin cancer, denies bleeding/changing moles, and denies a history of skin rash. ?Neurologic: ?The patient NOTES a history of epilepsy/convulsions, denies headaches, denies head/spinal injuries, and denies stroke/TIA. ?Psychiatric: ?The patient denies psychiatric medications, denies depression, and denies voices, denies substance abuse. ?Endocrine: ?The patient denies thyroid disorders, denies diabetes, and denies hormonal problems. ?Hematologic: ?The patient NOTES a history of bruising, denies bleeding, and denies anemia, NOTES blood clots. ?Infections: ?The patient NOTES a history of measles and mumps, denies rheumatic fever, and denies sexually transmitted diseases. ?Musculoskeletal: ?The patient denies back pain/injury, denies back problems, NOTES sciatica, NOTES knee/foot trouble, NOTES arthritis, or denies gout. ? ? When was patient's last Mammogram screening? Summer 2018 ? ?Last Colonoscopy: ?03/2015?? ? PHYSICAL EXAMINATION: ? General: ?The patient is 63 year old female, well nourished, well hydrated in no acute distress. ?The patient is oriented to time, place, and person. ? VITALS:?Blood pressure 142/86, pulse 64, temperature 36.3 ?C (97.4 ?F), temperature source Temporal Artery, height 165.1 cm (5' 5), weight 74.4 kg (164 lb), last menstrual period 06/10/2004, SpO2 99 %.?Body mass index is 27.29 kg/m?.? ? HEENT: ?Normal cephalic, ataumatic, pupils are equally round, sclera are anicteric, mucous membranes are moist, oropharynx is clear. ?Neck has no masses, asymmetry or lymphadenopathy. ?Thyroid is unremarkable. ? Respiratory: ?Clear to auscultation and percussion. ?Normal respiratory excursion and pattern. ? Cardiac: ?Examination is regular rate and rhythm. ? Abdominal exam: ?Soft, nontender, ?with no palpable masses. ?No hepatosplenomegaly. ?No palpable hernias. ? Rectal exam: exam deferred ? Extremities: ?no clubbing, cyanosis or edema. ?No adenopathy. ? Other: ? LABORATORY VALUES: As Noted ? RADIOLOGIC STUDIES: ?As Noted ? Assessment ? IMPRESSION: Worsening change in bowel habits, left lower quadrant discomfort ? PLAN: ?I plan to perform upper and lower endoscopy. ??We discussed the risks and benefits of the planned endoscopy. ?I have informed the patient that complications can occur including failure to complete the endoscopy and perforation. ?The patient had the opportunity to ask questions concerning the planned endoscopy. ?My staff has also explained the procedure to the patient in understandable terms and has given the patient printed material concerning the p rocedure. ?The patient freely consents to surgery. ? I plan to use golytely bowel preparation for endoscopy ? The patient has medical comorbidities for which I plan to perform the procedure under monitored anesthetic care. ? Diagnoses:?(R10.32) LLQ pain ?(primary encounter diagnosis) (Z80.0) Family history of colon cancer (K21.9) Gastroesophageal reflux disease, esophagitis presence not specified ? Return to Clinic: The patient is instructed to follow-up with me after the testing has been completed. ? Anthony Fraga MD
--- NOTE | 2019-08-15 | IMM_PTH ---
PATIENT: CHIRAG RODRÍGUEZ LOC: EN U#:[id number] AGE/SX: 63/F ROOM: RE08/15/[address]: Dr. Anthony Fraga MD : 1955 BED: DIS: 08/15/2019 SPEC #: [id number] RECD: 08/15/19 15:30 STATUS: ROCK REYoli #: [id number] PINKY: 08/15/19 00:[address]: Anthony Fraga DEPT: IMMUNOHISTOCHEMISTRY RECD BY: Sam Joiner ENTERED: 08/15/19 15:30 SP TYPE: IMMUNO OTHR DR: Dr. Alhaji Knutson MD Tissues: Gastric mucous membrane Procedures: H Pylori (initial) PHYSICIAN & INSTITUTION [place] [id number] SPECIMEN INFORMATION: Tissue Source: B. Antrum biopsy, E. Ileocecal valve biopsy Clinical Info: Left lower quad pain, change in bowel habits Specimen Number: [id number] B, E CPT code: 95570 x2, 52551 x7 METHODOLOGY: Deparaffinized sections of prefer/formalin-fixed tissue or PAP/DQ stained slides are incubated with monoclonal/polyclonal antibodies/oligonucleotide probes. Localization is made via biotin free immunoperoxidase method. Appropriate controls are performed and reacted as expected. Results on target cell population are indicated in the following table: RESULTS: ANTIBODY / CLONE RESULT Block B H Pylori (polyclonal) negative Block E AE1-3 (AE1/AE3/PCK26) negative S-100 (4C4.9) positive NSE Neuron Specific Enolase positive Neurofil (2F11) negative CD56 (123C3.D5) positive Chromo (LK2H10) negative Synapto (polyclonal) positive P53 (DO-7) negative These tests were developed and their performance characteristics determined by [facility]. They may not have been cleared or approved by the U.S. Food and Drug Administration. The FDA has determined that such clearance or approval is not necessary. The above immunohistochemical/dualISH markers are ordered and reviewed by the Pathologist. INTERPRETATION: B. Gastric antrum biopsy: Negative for Helicobacter pylori organisms. E. Ileocecal valve, biopsy: Consistent with mucosal neuroma Case has been reviewed in consultation with Dr. Solis who concurs with the above diagnosis. IDC:GRACE AM:artie 08/17/19
[2019-08-15 12:30] VITALS: BP 115/72; PULSE 60; RESP 14; TEMP 36.5; O2SAT 100; BMI 26.7
[2019-08-15] MEDS: Lactated Ringers 1,000 ML 100 ML IV (12:50)
--- NOTE | 2019-08-15 13:00 | EGD_PTH ---
PATIENT: CHIRAG RODRÍGUEZ LOC: EN U#:[id number] AGE/SX: 63/F ROOM: RE08/15/[address]: Dr. Anthony Fraga MD : 1955 BED: DIS: 08/15/2019 SPEC #: [id number] RECD: 08/15/19 14:01 STATUS: ROCK YOLANDE #: [id number] PINKY: 08/15/19 13:[address]: Anthony Fraga DEPT: SURGICAL PATHOLOGY RECD BY: Mook Ramos ENTERED: 08/15/19 14:28 SP TYPE: EGD BIOPSY OT DR: Dr. Alhaji Knutson MD Tissues: A - Jejunum, NOS B - Gastric mucous membrane C - Esophageal mucous membrane D - Esophageal mucous membrane E - Ileum, NOS F - Ileum, NOS G - COLON BIOPSY Procedures: Surgery Specimen Level IV HEADER OPERATION: Colonoscopy, EGD ([facility] [place]) PRE-OP DIAGNOSIS: Left lower quad pain, change in bowel habits TISSUE SUBMITTED: A. Jejunum biopsy, B. Antrum biopsy, C. Distal esophagus biopsy, D. Mid esophagus biopsy, E. Ileocecal valve biopsy, F. Terminal ileum biopsy, G. Random colon biopsies MICROSCOPIC DIAGNOSIS A. Jejunum, biopsy: No pathologic change. B. Gastric antrum, biopsy: Mild chronic gastritis. C. Distal esophagus, biopsy: Fragments of benign squamous mucosa. No evidence of inflammation. D. Mid esophagus, biopsy: Fragment of benign squamous mucosa. No evidence of any inflammation. E. Ileocecal valve, biopsy: Focal benign mucosal neuroma. F. Terminal ileum, biopsy: No pathologic change. G. Random biopsy: No pathologic change. AM:rina 08/16/19 COMMENT B. The results of immunohistochemistry for Helicobacter pylori will be reported separately ([id number]). E. Immunohistochemistry ([id number]) supports the above diagnosis. Case has been reviewed in consultation with Dr. Solis who concurs with the above diagnosis. IDC:SJ MICROSCOPIC DESCRIPTION Slides are reviewed. GROSS DESCRIPTION A. Received is one container labeled with the patient name and designated jejunum biopsy. The specimen consists of one irregular fragment of light kolb soft tissue that measures 0.5 x 0.1 x 0.1 cm. The specimen is totally submitted in one cassette. B. Received is one container labeled with the patient name and designated antrum biopsy. The specimen consists of one irregular fragment of light kolb soft tissue that measures 0.5 x 0.3 x 0.1 cm. The specimen is totally submitted in one cassette. C. Received is one container labeled with the patient name and designated distal esophagus biopsy. The specimen consists of one irregular fragment of light kolb soft tissue that measures 0.3 x 0.3 x 0.1 cm. The specimen is totally submitted in one cassette. D. Received is one container labeled with the patient name and designated mid esophagus biopsy. The specimen consists of two irregular fragments of light kolb soft tissue that in aggregate measure 0.5 x 0.3 x 0.1 cm. The specimen is totally submitted in one cassette. E. Received is one container labeled with the patient name and designated ileocecal valve biopsy. The specimen consists of one irregular fragment of light kolb soft tissue that measures 0.5 x 0.3 x 0.1 cm. The specimen is totally submitted in one cassette. F. Received is one container labeled with the patient name and designated terminal ileum biopsy. The specimen consists of one irregular fragment of light kolb soft tissue that measures 0.4 x 0.2 x 0.1 cm. The specimen is totally submitted in one cassette. G. Received is one container labeled with the patient name and designated random colon biopsy. The specimen consists of one irregular fragment of light kolb soft tissue that measures 0.3 x 0.2 x 0.1 cm. The specimen is totally submitted in one cassette. /SJ:sp 08/15/19 TC: 3 CPT: 54441 x7
--- NOTE | 2019-08-15 13:27 | OP.EGD_ITS ---
Patient Name: Mary Dumont Procedure Date: 08/15/2019 12:50 PM Date of : 1955 Age: 63 Procedure: Upper GI endoscopy Indications: Abdominal pain Providers: Anthony Fraga MD Referring MD: Alhaji Fong Medicines: Monitored Anesthesia Care Patient Profile: This is a 63 year old female. Refer to note in patient chart for documentation of history and physical. Complications: No immediate complications. Procedure: Pre-Anesthesia Assessment: - Prior to the procedure, a History and Physical was performed, and patient medications and allergies were reviewed. The patient is competent. The risks and benefits of the procedure and the sedation options and risks were discussed with the patient. All questions were answered and informed consent was obtained. Patient identification and proposed procedure were verified by the physician, the nurse and the suspect artist in the procedure room. Mental Status Examination: alert and oriented. Respiratory Examination: clear to auscultation. CV Examination: normal. Prophylactic Antibiotics: The patient does not require prophylactic antibiotics. Prior Anticoagulants: The patient has taken no previous anticoagulant or antiplatelet agents. ASA Grade Assessment: II - A patient with mild systemic disease. After reviewing the risks and benefits, the patient was deemed in satisfactory condition to undergo the procedure. The anesthesia plan was to use monitored anesthesia care (MAC). Immediately prior to administration of medications, the patient was re-assessed for adequacy to receive sedatives. The heart rate, respiratory rate, oxygen saturations, blood pressure, adequacy of pulmonary ventilation, and response to care were monitored throughout the procedure. The physical status of the patient was re-assessed after the procedure. After obtaining informed consent, the endoscope was passed under direct vision. Throughout the procedure, the patient's blood pressure, pulse, and oxygen saturations were monitored continuously. The gastroscope was introduced through the mouth, and advanced to the jejunum. The upper GI endoscopy was accomplished without difficulty. The patient tolerated the procedure well. Moderate Sedation: Moderate (conscious) sedation was personally administered by an anesthesia professional. The following parameters were monitored: oxygen saturation, heart rate, blood pressure, and response to care. Scope In: 1:00:39 PM Scope Out: 1:04:45 PM Total Procedure Duration Time 0 hours 4 minutes 6 seconds Findings: The examined jejunum was normal. Biopsies for histology were taken with a cold forceps for evaluation of celiac disease. The examined duodenum was normal. The entire examined stomach was normal. Biopsies were taken with a cold forceps for histology. The lower third of the esophagus was normal. Biopsies were taken with a cold forceps for histology. The middle third of the esophagus was normal. Biopsies were taken with a cold forceps for histology. Impression: - Normal examined jejunum. Biopsied. - Normal examined duodenum. - Normal stomach. Biopsied. - Normal lower third of esophagus. Biopsied. - Normal middle third of esophagus. Biopsied. Recommendation: - Discharge patient to home. - Resume previous diet. - Continue present medications. - Return to my office in 1 week. Procedure Code(s): --- Professional --- 32715, Esophagogastroduodenoscopy, flexible, transoral; with biopsy, single or multiple CPT copyright 2017 [employer]. All rights reserved. The codes documented in this report are preliminary and upon jointer machine review may be revised to meet current compliance requirements. Anthony Fraga MD 08/15/2019 1:27:33 PM This report has been signed electronically. Number of Addenda: 0 Note Initiated On: 08/15/2019 12:50 PM
[2019-08-15 13:29] VITALS: BP 107/68; BP 115/72; PULSE 74; RESP 16; TEMP 36.7; O2SAT 98
--- NOTE | 2019-08-15 13:30 | OP.COLON_ITS ---
Patient Name: Mary Dumont Procedure Date: 08/15/2019 1:06 PM Date of : 1955 Age: 63 Procedure: Colonoscopy Indications: Change in bowel habits Providers: Anthony Fraga MD Referring MD: Alhaji Fong Patient Profile: This is a 63 year old female. Refer to note in patient chart for documentation of history and physical. Last Colonoscopy: date unknown. Unable to locate last colonoscopy report. Complications: No immediate complications. Procedure: Pre-Anesthesia Assessment: - Prior to the procedure, a History and Physical was performed, and patient medications and allergies were reviewed. The patient is competent. The risks and benefits of the procedure and the sedation options and risks were discussed with the patient. All questions were answered and informed consent was obtained. Patient identification and proposed procedure were verified by the physician, the nurse and the tax lawyer in the procedure room. Mental Status Examination: alert and oriented. Respiratory Examination: clear to auscultation. CV Examination: normal. Prophylactic Antibiotics: The patient does not require prophylactic antibiotics. Prior Anticoagulants: The patient has taken no previous anticoagulant or antiplatelet agents. ASA Grade Assessment: II - A patient with mild systemic disease. After reviewing the risks and benefits, the patient was deemed in satisfactory condition to undergo the procedure. The anesthesia plan was to use monitored anesthesia care (MAC). Immediately prior to administration of medications, the patient was re-assessed for adequacy to receive sedatives. The heart rate, respiratory rate, oxygen saturations, blood pressure, adequacy of pulmonary ventilation, and response to care were monitored throughout the procedure. The physical status of the patient was re-assessed after the procedure. After I obtained informed consent, the scope was passed under direct vision. Throughout the procedure, the patient's blood pressure, pulse, and oxygen saturations were monitored continuously. The Duodenoscope was introduced through the anus and advanced to 5 cm into the ileum. The colonoscopy was performed without difficulty. The patient tolerated the procedure well. The quality of the bowel preparation was good. Scope In: 1:07:38 PM Scope Withdrawal Time 0 hours 9 minutes 56 seconds Scope Out: 1:23:23 PM Total Procedure Duration Time 0 hours 15 minutes 45 seconds Findings: The perianal and digital rectal examinations were normal. The terminal ileum appeared normal. Biopsies were taken with a cold forceps for histology. The colon (entire examined portion) appeared normal. Biopsies for histology were taken with a cold forceps from the cecum and sigmoid colon for evaluation of microscopic colitis. The retroflexed view of the distal rectum and anal verge was normal and showed no anal or rectal abnormalities. Impression: - The examined portion of the ileum was normal. Biopsied. - The entire examined colon is normal. Biopsied. - The distal rectum and anal verge are normal on retroflexion view. Recommendation: - Discharge patient to home. - Resume previous diet. - Continue present medications. - Return to my office in 1 week. - Repeat colonoscopy is recommended. The colonoscopy date will be determined after pathology results from today's exam become available for review. Procedure Code(s): --- Professional --- 79240, Colonoscopy, flexible; with biopsy, single or multiple CPT copyright 2017 [employer]. All rights reserved. The codes documented in this report are preliminary and upon contract forester review may be revised to meet current compliance requirements. Anthony Fraga MD 08/15/2019 1:29:56 PM This report has been signed electronically. Number of Addenda: 0 Note Initiated On: 08/15/2019 1:06 PM
[2019-08-15 13:35] VITALS: BP 107/68; BP 115/72; PULSE 59; RESP 16; O2SAT 100
[2019-08-15 13:41] VITALS: BP 115/72; BP 117/63; PULSE 53; RESP 16; O2SAT 100
[2019-08-15 13:45] VITALS: BP 115/72; BP 117/71; PULSE 52; RESP 16; TEMP 37; O2SAT 100
[2019-08-15 13:57] VITALS: BP 115/72
== END 2019-08-15 14:04 | disposition home or self-care (01) ==
LOC: EN 11:51 → AC 11:53 → ACINP 13:27
PROVIDERS: Family Provider Family Medicine; PCP Family Medicine; Referring Provider Family Medicine; Visit Provider Surgery
PROC: 0DJD8ZZ Inspection of Lower Intestinal Tract, Via Natural or Artificial Opening Endoscopic (ICD-10-PCS; CPT 45378; principal; 2019-08-15 12:55)
DX: K29.50 Unspecified chronic gastritis without bleeding (principal); K21.9 Gastro-esophageal reflux disease without esophagitis; R10.32 Left lower quadrant pain; R19.4 Change in bowel habit; Z86.010 Personal history of colon polyps; Z80.0 Family history of malignant neoplasm of digestive organs; I49.1 Atrial premature depolarization; I49.3 Ventricular premature depolarization; E78.00 Pure hypercholesterolemia, unspecified; G40.909 Epilepsy, unspecified, not intractable, without status epilepticus; F32.9 Major depressive disorder, single episode, unspecified; Z79.899 Other long term (current) drug therapy
CPT/HCPCS: 43239; 45380; 88305; 88342; J7120; J2405

== ENCOUNTER → 2019-08-23 10:41 | Outpatient (CLI) | payer OTHER, SELFPAY ==
[2019-08-15 12:30] VITALS: BMI 26.7
[2019-08-23 13:05] LABS: AST(SGOT) 32 U/L (15-37); Alanine Aminotransfer ALT/SGPT 35 U/L (13-56); Albumin, Serum 3.6 g/dL (3.2-5.0); Alkaline Phosphatase 66 U/L (45-117); Anion Gap 8 (5-15); BUN 15 mg/dL (7-18); BUN/Creat Ratio 19.4 RATIO (10-20); Calcium,Total 8.7 mg/dL (8.5-10.1); Chloride 107 mmol/L (98-107); Cholesterol 210 mg/dL (200); Creatinine, Serum 0.77 mg/dL (0.55-1.02); EST Glomerular Filtration Rate 80 mL/min (>60); Est Glom Filt Rate - Afr Amer 97 mL/min (>60); Globulin 3.7 g/dL (2.2-4.2); Glucose 84 mg/dL (74-106); High Density Lipoprotein 84 mg/dL; Potassium 3.8 mmol/L (3.5-5.1); Protein, Total 7.3 g/dL (6.4-8.2); Sodium Level 139 mmol/L (136-145); Thyroid Stim Hormone (TSH) 2.22 uIU/mL (0.358-3.74); Triglycerides 73 mg/dL; Very Low Density Lipoprotein 15 mg/dL (5-40)
== END ==
PROVIDERS: Family Provider Family Medicine; PCP Family Medicine; Referring Provider Family Medicine; Visit Provider Family Medicine
DX: E78.5 Hyperlipidemia, unspecified (principal); E55.9 Vitamin D deficiency, unspecified; F41.9 Anxiety disorder, unspecified
CPT/HCPCS: 36415; 80053; 80061; 82306; 84443

== ENCOUNTER → 2020-02-09 09:21 | Outpatient (CLI) | payer OTHER, SELFPAY ==
[2019-12-21 13:19] VITALS: BMI 26.3
--- NOTE | 2020-02-09 09:30 | MRI_ITS ---
STUDY: MRI BRAIN WITH AND WITHOUT CONTRAST REASON FOR EXAM: Female, 64 years old. epilepsy, cortical dysplasia s/p surgery, headaches TECHNIQUE: Standardized multiplanar fat and water weighted pulse sequences were obtained. 15 mL of Dodertim was administered for the contrast portion of the examination. COMPARISON: MRI brain with and without contrast 04/02/2015. 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 Normal ventricles and cisterns. Normal white matter tracts of the supratentorial brain. Normal bilateral basal ganglia. Normal thalami. There is no extra-axial fluid accumulation. Normal flow voids within the major intracranial circulation suggesting patency by spin echo criteria. Normal venous enhancement. There is no enhancing intra-axial or extra-axial abnormality. Normal sella turcica, pituitary gland, infundibular stalk, optic chiasm and hypothalamus. Normal tectal plate and pineal gland. Normal midbrain, tim and medulla. Normal cerebellum. Normal basal cisterns. Normal bilateral temporal bones. Normal bilateral internal auditory canals. No demonstrated orbital abnormality, within the constraints of a routine brain study. Normal visualized paranasal sinuses. Normal calvarium and skull base. Normal visualized soft tissue structures. Normal visualized upper cervical spine. MRI/Brain W/WO Contrast IMPRESSION: 1. 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 2. No MRI evidence of any suspicious enhancing or nonenhancing mass, intraaxially or extra-axially. 3. No visible focal cortical dysplasia. 4. No other additional findings or changes when compared to 04/02/2015. Electronically Signed: David Sommers MD at 14:59 EDT , Service support ,
[2020-02-10 07:09] LABS: CREATININE FINGERSTICK 0.57 mg/dL (0.55-1.02); EGFR FINGERSTICK > 60 mL/min (>60)
== END ==
PROVIDERS: PCP Family Medicine
DX: G40.119 Localization-related (focal) (partial) symptomatic epilepsy and epileptic syndromes with simple partial seizures, intractable, without status epilepticus (principal); G44.89 Other headache syndrome
CPT/HCPCS: 70553; A9575

== ENCOUNTER 2020-06-02 10:30 | Emergency (ER) | payer OTHER, SELFPAY ==
[2019-12-21 13:19] VITALS: BMI 26.3
[2020-06-02 10:30] VITALS: BP 139/84; PULSE 71; RESP 16; TEMP 35.7; O2SAT 99; BMI 27.9
--- NOTE | 2020-06-02 11:01 | ED.VISSUMM ---
- ER Visit Summary Date of Service: 06/02/20 Chief Complaint: [Redness and swelling the right foot] History of Present Illness: The patient is a 64 F [presents the emergency department with redness and swelling to the right foot that started yesterday. Patient states that she often gets cracks in her skin of her feet and her director of community education started her on some antifungal ointment which seems to have helped. 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 This morning she woke up and had redness, swelling, and increased pain. Patient was seen in urgent care and referred to the ER. She denies any fever or sweats. Patient has history of brain tumor that was resected and history of seizure disorder.] Physical Examination: [HEENT-PERRLA, EOMI. Cranial nerves II through XII grossly intact. TMs clear. Mucous membranes moist. No adenopathy. Cardiovascular-regular rate and rhythm without murmur or ectopy Lungs-clear to auscultation, chest wall stable without crepitus or subcu emphysema Abdomen-normoactive bowel sounds, soft, nontender, no rebound or rigidity, no peritoneal signs. Extremities-intact ?4, normal range of motion, normal pulses. Right foot-patient has what looks like a soft tissue swelling/abscess to the plantar aspect of the great toe at the MTP joint with surrounding erythema and cellulitis with small amount of lymphangitic streaking to the dorsum of the foot. Neurovascular intact distally.] Test Results: [None indicated] Emergency Department Course and Treatment: [Patient was offered an incision and drainage to which she agreed. Skin was cleansed with Betadine. She did not want any local anesthetic. Using an 11 blade a 2 cm incision was made into the suspected abscess and large amount of purulent debris was expressed. Wound was cleansed with saline. Patient was started on Keflex and Bactrim p.o. I outlined the area and erythema with marker.] Treatment Plan: [We will be starting Keflex and Bactrim. Patient advised to follow-up with her primary care physician in 3 to 5 days for wound check. Patient advised to return if increasing pain, redness, swelling, fevers, or condition should worsen anyway.] Disposition: [Discharged home in stable condition] Impression: [Soft tissue abscess right foot with incision and drainage Cellulitis right foot] This note was generated with [employer] dictation software. It may contain incorrect words, spelling, and punctuation that were not noted in review of the chart prior to signing ED Disposition - Plan for ED Patient: Referrals: Alhaji Knutson MD [Primary Care Provider] -
--- NOTE | 2020-06-02 11:03 | ED.DEP ---
ED Disposition - Plan for ED Patient: Instructions: ED Abscess Incision And Drainage, ED Cellulitis Prescriptions: Smz/Tmp Ds [Bactrim Ds] 1 tab PO BID #20 tab Prescription Printed Cephalexin [Keflex] 500 mg PO Q6 #40 cap Prescription Printed Referrals: Alhaji Knutson MD [Primary Care Provider] -
[2020-06-02] MEDS: Smz/Tmp Ds Tablet 1 TABLET PO (11:43)
[2020-06-02] MEDS: Cephalexin 250 MG Capsule 500 MG PO (11:43)
== END 2020-06-02 12:06 | disposition home or self-care (01) ==
PROVIDERS: Emergency Provider Emergency Medicine; PCP Family Medicine
DX: L02.611 Cutaneous abscess of right foot (principal); L03.031 Cellulitis of right toe; G40.909 Epilepsy, unspecified, not intractable, without status epilepticus
CPT/HCPCS: 10060; 99282

== ENCOUNTER → 2020-06-08 09:20 | Outpatient (CLI) | payer OTHER, SELFPAY ==
[2020-06-02 10:30] VITALS: BMI 27.9
[2020-06-08 10:40] LABS: Vitamin D,25 Hydroxy 70.4 ng/mL
[2020-06-08 10:49] LABS: ALB/GLOB Ratio 0.9 RATIO (0.9-2.4); AST(SGOT) 33 U/L (15-37); Alanine Aminotransfer ALT/SGPT 35 U/L (13-56); Albumin, Serum 3.6 g/dL (3.2-5.0); Alkaline Phosphatase 71 U/L (45-117); Anion Gap 4 (5-15); BUN 16 mg/dL (7-18); BUN/Creat Ratio 18.9 RATIO (10-20); Chloride 108 mmol/L (98-107); Cholesterol 212 mg/dL (200); Creatinine, Serum 0.85 mg/dL (0.55-1.02); EST Glomerular Filtration Rate 72 mL/min (>60); Est Glom Filt Rate - Afr Amer 87 mL/min (>60); Globulin 3.9 g/dL (2.2-4.2); Glucose 85 mg/dL (74-106); High Density Lipoprotein 95 mg/dL; Potassium 4.2 mmol/L (3.5-5.1); Protein, Total 7.5 g/dL (6.4-8.2); Sodium Level 137 mmol/L (136-145); Triglycerides 87 mg/dL; Very Low Density Lipoprotein 17 mg/dL (5-40)
== END ==
PROVIDERS: PCP Family Medicine; Referring Provider Family Medicine; Visit Provider Family Medicine
DX: E78.5 Hyperlipidemia, unspecified (principal); E55.9 Vitamin D deficiency, unspecified
CPT/HCPCS: 36415; 80053; 80061; 82306

== ENCOUNTER → 2020-07-03 14:26 | Outpatient (CLI) | payer OTHER, SELFPAY ==
[2019-12-21 13:19] VITALS: BMI 26.3
--- NOTE | 2020-07-03 14:28 | BI_ITS ---
MAMMOGRAPHY - BILATERAL SCREENING REASON FOR EXAM: Female, 64 years old. Routine annual screening examination. PERTINENT HISTORY: Aunt with breast cancer. History of prior bilateral breast reduction surgery. TECHNIQUE: Digital bilateral breast karine (3D mammographic acquisition) in the CC and MLO projections. 2-D mediolateral oblique (MLO) and craniocaudad (CC) views of both breasts were obtained. CAD: Full Field Digital Mammography with Computer Added Detection was performed. COMPARISON: Comparison is made with prior study dated 04/08/2019. FINDINGS: Breast Composition: The breasts are heterogeneously dense, which may obscure small masses. Possible 7.6 mm nodular density in the deep lateral upper aspect of the left breast. Correlation with ultrasound is recommended. Stable 1.6 cm x 1.2 cm calcified nodule in the deep slightly inferior aspect of the right breast. Stable small benign appearing bilateral axillary lymph nodes. No other significant abnormalities are identified. BI/SCREEN MAMM (CAD) W/KARINE BILAT IMPRESSION: 7.6 mm nodular density in the deep lateral upper aspect of the left breast. Correlation with ultrasound is recommended. ASSESSMENT CATEGORY: BIRADS Category 0: Incomplete. Need additional imaging evaluation. A letter regarding these results will be sent to the patient by the facility within 30 days. Approximately 10% of breast cancers are not detected by mammography. A normal mammogram should not delay biopsy of a clinically suspicious abnormality. [id number] Electronically Signed: Eric Judge, at 15:27 EDT , Service support ,
--- NOTE | 2020-07-03 14:34 | BD_ITS ---
STUDY: DUAL ENERGY X-RAY ABSORPTIOMETRY / DXA REASON FOR EXAM: Female, 64 years old. 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 COMPARISON: None. FINDINGS: Lumbar Spine (L1-L4): g/cm2 (1.089) / T-score (-0.8) / Z-score (0.8) Findings are suggestive of normal bone density with a low fracture risk. Left Femur Total: g/cm2 (0.867) / T-score (-1.1) / Z-score (0.1) Left Femoral Neck: g/cm2 (0.784) / T-score (-1.8) / Z-score (-0.4) Right Femur Total: g/cm2 (0.892) / T-score (-0.9) / Z-score (0.2) Right Femoral Neck: g/cm2 (0.813) / T-score (-1.6) / Z-score (-0.2) BD/Dexa Bone Density Study IMPRESSION: The patient is considered osteopenic as outlined below according to World [employer] Organization (WHO) criteria with a moderate fracture risk. Reference Information: The T-score is the number of standard deviations above or below the standard which is normal for young adults at their peak bone mineral density. The World Health Organization (WHO) interprets the T-scores as follows: Above -1 Normal bone density Between -1 and -2.5 Osteopenia Equal to / or below -2.5 Osteoporosis As a practical clinical guideline, osteopenia may be graded as follows: Mild -1 through -1.5 Moderate -1.6 through -2.0 Severe -2.1 through -2.4 The Z-score is the number of standard deviations above or below age-matched controls. A Z-score of less than -1.5 would be considered abnormal. References: 1. NIH Osteoporosis and Related Bone Diseases www osteo.org 2. International Society for Clinical Densitometry www iscd.org 3. National Osteoporosis Foundation www nof.org Electronically Signed: Eric Judge, at 15:13 EDT , Service support ,
== END ==
PROVIDERS: PCP Family Medicine; Referring Provider Obstetrics & Gynecology; Visit Provider Obstetrics & Gynecology
DX: N95.1 Menopausal and female climacteric states (principal); M84.9 Disorder of continuity of bone, unspecified; Z12.31 Encounter for screening mammogram for malignant neoplasm of breast; N63.20 Unspecified lump in the left breast, unspecified quadrant
CPT/HCPCS: 77063; 77067; 77080

== ENCOUNTER → 2020-07-06 12:20 | Outpatient (CLI) | payer OTHER, SELFPAY ==
--- NOTE | 2020-07-06 12:23 | US_ITS ---
STUDY: ULTRASOUND BREAST - LEFT REASON FOR EXAM: Female, 64 years old. Abnormal screening mammogram. TECHNIQUE: Axial and longitudinal images of the LEFT breast were performed with a high resolution ultrasound transducer. # OF IMAGES: 19 COMPARISON: Comparison is made with prior mammogram dated 07/03/2020. FINDINGS: LEFT Breast: There is a 6 mm x 7 mm x 5 mm hypoechoic nodule with some posterior acoustical shadowing at the 1 o''clock position breast at 3 cm from the nipple. This corresponds to the mammographic abnormality. A biopsy is recommended. US/Breast Limited Unilateral IMPRESSION: 6 mm x 7 mm x 5 mm hypoechoic nodule with some posterior acoustical shadowing at the 1 o''clock position of the breast at 3 cm from nipple. A biopsy is recommended. ASSESSMENT CATEGORY: BIRADS Category 4: Suspicious - Biopsy Should Be Considered. A letter regarding these results will be sent to the patient by the facility within 30 days. Electronically Signed: Eric Judge, at 8:43 EST , Service support ,
== END ==
PROVIDERS: PCP Family Medicine; Referring Provider Obstetrics & Gynecology; Visit Provider Obstetrics & Gynecology
DX: N63.21 Unspecified lump in the left breast, upper outer quadrant (principal)
CPT/HCPCS: 76642

== ENCOUNTER → 2020-07-18 | Outpatient (CLI) | payer OTHER, SELFPAY ==
--- NOTE | 2020-07-18 15:40 | BRBX_PTH ---
PATIENT: CHIRAG RODRÍGUEZ [facility]: [facility] U#:[id number] AGE/SX: 64/F ROOM: RE07/18/[address]: Dr. Jorge Lund MD : 1955 BED: DIS: 07/18/2020 SPEC #: [id number] RECD: 07/18/20 16:11 STATUS: ROCK REYoli #: [id number] PINKY: 07/18/20 15:[address]: Jorge Lund DEPT: SURGICAL PATHOLOGY RECD BY: Sam Joiner ENTERED: 07/19/20 08:53 SP TYPE: BREAST BX OTHR DR: Dr. Alhaji Knutson MD Tissues: Left breast, NOS Procedures: Surgery Specimen Level IV HEADER OPERATION: Left breast biopsy PRE-OP DIAGNOSIS: Abnormal left breast ultrasound TISSUE SUBMITTED: Left breast tissue FIXATION TIME: 28 hours MICROSCOPIC DIAGNOSIS Left breast, core biopsy: Benign breast tissue with dense fibrosis and focal microcalcifications. Focal histiocytic reaction and dystrophic calcifications. Negative for atypia or malignancy. See comment. GRACE:vernon 07/20/20 COMMENT Correlation with clinical, radiologic findings and appropriate follow up are necessary. MICROSCOPIC DESCRIPTION Slides are reviewed. GROSS DESCRIPTION Received in fixative is one container labeled with the patient name and designated left breast. The specimen consists of multiple elongated fragments of kolb-yellow fibroadipose tissue that in aggregate measure 1.5 x 0.5 x 0.1 cm. The entire specimen is submitted in one cassette. / GRACE:vernon 07/19/20 TC:5 CPT: 75411
== END | disposition home or self-care (01) ==
LOC: LABSPEC 16:18
PROVIDERS: PCP Family Medicine; Referring Provider Surgery; Visit Provider Surgery
DX: R92.8 Other abnormal and inconclusive findings on diagnostic imaging of breast (principal)
CPT/HCPCS: 88305

== ENCOUNTER → 2020-07-20 08:20 | Outpatient (CLI) | payer OTHER, SELFPAY ==
--- NOTE | 2020-07-20 09:23 | BI_ITS ---
MAMMOGRAPHY - UNILATERAL DIAGNOSTIC: LEFT BREAST REASON FOR EXAM: Female, 64 years old. Status post ultrasound-guided biopsy in the upper lateral aspect of the left breast. PERTINENT HISTORY: Aunt with breast cancer. TECHNIQUE: MLO and craniocaudad views of the left breast were obtained. CAD: Full Field Digital Mammography with Computer Added Detection was performed. COMPARISON: Comparison is made with prior mammogram dated 07/03/2020. FINDINGS: Breast Composition: The breasts are heterogeneously dense, which may obscure small masses. A tissue clip marker is seen within a nodular density in the upper lateral portion of the left breast. No other significant abnormalities are identified. BI/DIAG MAMM W/CAD, UNILAT IMPRESSION: Status post ultrasound-guided breast biopsy with placement of a tissue clip marker. ASSESSMENT CATEGORY: BIRADS Category 2: Benign. A letter regarding these results will be sent to the patient by the facility within 30 days. Approximately 10% of breast cancers are not detected by mammography. A normal mammogram should not delay biopsy of a clinically suspicious abnormality. Electronically Signed: Eric Judge, at 10:47 EST , Service support ,
== END ==
PROVIDERS: PCP Family Medicine; Referring Provider Surgery; Visit Provider Surgery
DX: Z98.890 Other specified postprocedural states (principal)
CPT/HCPCS: 77065

== ENCOUNTER → 2021-01-04 08:45 | Outpatient (CLI) | payer MEDICARE, SELFPAY ==
[2020-12-24 13:04] VITALS: BMI 28.6
[2021-01-04 10:27] LABS: Vitamin D,25 Hydroxy 70.2 ng/mL
[2021-01-04 10:36] LABS: Cholesterol 237 mg/dL (200); High Density Lipoprotein 89 mg/dL; Triglycerides 59 mg/dL; Very Low Density Lipoprotein 12 mg/dL (5-40)
== END ==
PROVIDERS: PCP Family Medicine; Referring Provider Family Medicine; Visit Provider Family Medicine
DX: E78.5 Hyperlipidemia, unspecified (principal); E55.9 Vitamin D deficiency, unspecified
CPT/HCPCS: 36415; 80061; 82306

== ENCOUNTER → 2021-01-10 06:12 | Outpatient (CLI) | payer MEDICARE, SELFPAY ==
[2020-12-24 13:04] VITALS: BMI 28.6
--- NOTE | 2021-01-10 06:14 | ECHOD_ITS ---
Reason For Study: Murmur Procedure This was a 2D Doppler, Color Flow transthoracic echocardiogram. The exam was of adequate technical quality. Exam performed in department. Left Ventricle Normal LV size. Left ventricular systolic function is normal. The estimated ejection fraction is 65 %. The global longitudinal strain = -21 % (normal). No evidence for diastolic dysfunction. No regional wall motion abnormalities noted. Right Ventricle Normal RV size. Normal systolic function. Atria Normal left atrium. Normal right atrium. No doppler evidence for ASD. Mitral Valve There is no mitral annular calcification. Normal mitral valve. Trivial mitral valve insufficiency. Tricuspid Valve Normal tricuspid valve. Mild tricuspid valve insufficiency. Unable to estimate RV systolic pressure due to insufficient tricuspid regurgitant envelope. Aortic Valve Trisinus/trileaflet aortic valve. Mild diffuse aortic valve thickening. Pulmonic Valve The pulmonic valve is not well visualized. Great Vessels Normal sized aortic root. Pericardium/Pleural No pericardial effusion. MMode/2D Measurements & Calculations LVIDd: 4.2 cm IVSd: 1.1 cm Ao root diam: 2.8 cm LVIDs: 2.6 cm LVPWd: 0.85 cm RVDd: 3.5 cm FS: 36.5 % LAV(MOD-bp): 44.8 ml LA A4 area: 18.2 cm2 LA dimension(2D): 3.3 cm LAV(MOD-bp) Indexed: 24.2 ml/m2 LAV(MOD-sp2): 38.6 ml LAV(MOD-sp4): 50.4 ml RA A4 area: 13.9 cm2 Doppler Measurements & Calculations MV E max kvng: 90.3 cm/sec Lat Peak E' Kvng: 9.9 cm/sec Med Peak E' Kvng: 7.5 cm/sec MV A max kvng: 98.6 cm/sec E/E' lat: 9.1 E/E' med: 12.0 MV E/A: 0.92 Ao V2 max: 145.6 cm/sec LV V1 max: 109.5 cm/sec PA V2 max: 99.0 cm/sec Ao max P.5 mmHg LV V1 max P.8 mmHg ECHO/Echo Complete Interpretation Summary Left ventricular systolic function is normal. The estimated ejection fraction is 65 %. The global longitudinal strain = -21 % (normal). Trivial mitral valve insufficiency. Mild tricuspid valve insufficiency. Mild diffuse aortic valve thickening. Unable to estimate RV systolic pressure due to insufficient tricuspid regurgita nt envelope. No evidence for diastolic dysfunction. Ordering Physician: Grey Murphy Referring Physician: Alhaji Knutson Performed By: Gretta Sue RDCS
--- NOTE | 2021-01-10 09:32 | STRESSREP_ITS ---
Stress Test Report Date: 01-10-2021 Procedure: Exercise tolerance test/imaging study Indications: Chest pain; cardiac ectopy Consent: Per the patient Procedure: The patient exercised on a Abhijeet protocol for 10 minutes completing Stage III and 1 minute of Stage IV achieving a peak heart rate of 155 bpm (100% predicted maximal heart rate) with a peak blood pressure 164/72 mmHg and a peak MET capacity of 11 METs. The baseline ECG demonstrated normal sinus rhythm. The peak exercise ECG demonstrated somatic/motion artifact with no obvious ECG changes. There was an isolated PVC during exercise. The functional capacity was considered. There was no complaint of chest discomfort during exercise or recovery. The examination was discontinued secondary to dyspnea. Impression: 1. Technically adequate (percent predicted maximal heart rate greater than 85%) exercise tolerance test 2. Peak exercise ECG with somatic/motion artifact with no obvious ECG changes 3. There was an isolated PVC during exercise 4. Nuclear images pending Myocardial perfusion imaging study: Technique: The patient was injected with 15.0 mCi of technetium 99m Cardiolite and subsequently rest SPECT Cardiolite nuclear imaging was obtained in the horizontal long, vertical long, and short axis views. The patient exercised on a Abhijeet protocol for 10 minutes completing Stage III and 1 minute of Stage IV achieving a peak heart rate of 155 bpm (100% predicted maximal heart rate) with a peak blood pressure 164/72 mmHg and a peak MET capacity of 11 METs. The patient was injected with 45.0 mCi of technetium 99m Cardiolite and subsequently stress SPECT Cardiolite nuclear imaging was obtained in the horizontal long, vertical long, and short axis views. A gated Cardiolite study at peak stress was obtained. Interpretation: Rest and stress SPECT Cardiolite nuclear imaging status post realignment, normalization, and attenuation correction, demonstrates the appearance of relatively uniform myocardial perfusion/tracer uptake at rest and status post stress. There is end systolic thickening and brightening. The gated Cardiolite study demonstrates myocardial thickening and inward wall motion. The reported LVEF is 70%. Impression: 1. Rest and stress SPECT Cardiolite nuclear imaging demonstrate relative uniform tracer uptake and myocardial perfusion appearing within normal limits. 2. The gated Cardiolite study reports an LVEF of 70%. This note was generated with [employer] software. It may contain incorrect words, spelling, and punctuation that were not noted in checking the note before signing.
== END ==
PROVIDERS: PCP Family Medicine; Referring Provider Internal Medicine Cardiovascular Disease; Visit Provider Internal Medicine Cardiovascular Disease
DX: R07.9 Chest pain, unspecified (principal); R01.1 Cardiac murmur, unspecified; R00.0 Tachycardia, unspecified; R07.2 Precordial pain; I49.1 Atrial premature depolarization; I49.3 Ventricular premature depolarization
CPT/HCPCS: 78452; 93017; 93306; A9500; A4216

== ENCOUNTER → 2021-06-07 09:24 | Outpatient (CLI) | payer MEDICARE, SELFPAY ==
[2020-12-24 13:04] VITALS: BMI 28.6
--- NOTE | 2021-06-07 09:35 | US_ITS ---
STUDY: ULTRASOUND BREAST - LEFT REASON FOR EXAM: Female, 65 years old. Short interval follow-up from biopsy. TECHNIQUE: Axial and longitudinal images of the LEFT breast were performed with a high resolution ultrasound transducer. # OF IMAGES: 8 COMPARISON: Diagnostic mammogram earlier today, ultrasound 07/06/2020 FINDINGS: LEFT Breast: Heterogeneous background echotexture. Next At 1 o''clock, 3 cm from nipple, there is no change in the 6 mm irregular parallel microlobulated hypoechoic mass with posterior shadowing which has been biopsied.: US/Breast Limited Unilateral IMPRESSION: No change in 6 mm irregular parallel microlobulated hypoechoic mass which has been biopsied. Routine screening mammogram is recommended in one year.. ASSESSMENT CATEGORY: BIRADS Category 2: Benign. A letter regarding these results will be sent to the patient by the facility within 30 days. Electronically Signed: Anthony Livingston MD at 16:12 EDT Tel , Service support ,
--- NOTE | 2021-06-07 09:35 | BI_ITS ---
MAMMOGRAPHY - BILATERAL DIAGNOSTIC REASON FOR EXAM: Female, 65 years old. Follow-up following left ultrasound-guided breast biopsy. PERTINENT HISTORY: Aunt with breast cancer. Prior bilateral breast reduction surgery. TECHNIQUE: Digital bilateral breast fabienne (3D mammographic acquisition) in the CC and MLO projections. 2-D mediolateral oblique (MLO) and craniocaudad (CC) views of both breasts were obtained. CAD: Full Field Digital Mammography with Computer Added Detection was performed. COMPARISON: Comparison is made with prior study 07/20/2020 and 07/03/2020. FINDINGS: Breast Composition: The breasts are heterogeneously dense, which may obscure small masses. There are no dominant masses or suspicious calcifications. The previously seen nodular density in the upper lateral aspect of the left breast has decreased in size. A tissue marker is seen in the region. Stable densely calcified nodule in the central deep portion of the right breast. No other significant abnormalities are identified. BI/DIAG MAMM W/CAD, BILAT IMPRESSION: Status post left ultrasound-guided breast biopsy. One year follow-up recommended. (A) ASSESSMENT CATEGORY: BIRADS Category 2: Benign. A letter regarding these results will be sent to the patient by the facility within 30 days. Approximately 10% of breast cancers are not detected by mammography. A normal mammogram should not delay biopsy of a clinically suspicious abnormality. Electronically Signed: Eric Judge MD at 11:17 EDT , Service support ,
== END ==
PROVIDERS: PCP Family Medicine; Referring Provider Surgery; Visit Provider Surgery
DX: R92.8 Other abnormal and inconclusive findings on diagnostic imaging of breast (principal)
CPT/HCPCS: 76642; 77062; 77066; G0279

== ENCOUNTER 2021-06-08 16:05 | Emergency (ER) | payer MEDICARE, SELFPAY ==
[2021-06-08 16:06] VITALS: BP 136/72; PULSE 76; RESP 16; TEMP 36.1; O2SAT 97; BMI 26.6
--- NOTE | 2021-06-08 16:29 | EDS_ITS ---
HPI History of Present Illness Chief Complaint: Abscess Informant: patient Onset/Context/Timing Onset: Days Context: Sudden Onset Timing: Continuous Quality: Abscess Location: Posterior distal left thigh Maximum Severity: Moderate Worsened by: Uncertain Relieved by: Nothing Associated Symptoms Associated Symptoms: Malaise and increased redness and nausea Narrative Narrative: Patient is a 65-year-old woman with history of staph skin infection who presents with abscess posterior left lower extremity. She was seen at urgent care and placed on Bactrim. The abscess was not lanced. She denies a traumatic fever, heart murmur, SBE or being immune suppressed. She does report nausea without vomiting or diarrhea. She denies fever or shaking chills. She thought she had a small lesion due to poison abiel since she had scratched it. She has other lesions noted on her left forearm. Prior similar symptoms: Yes Recent Illness/Hospitalization: No [facility] Medical History Abnormal mammogram of left breast Anxiety Chest pain High cholesterol Near syncope Palpitations Premature atrial contraction Premature ventricular contraction Tachycardia Home Medications acetaminophen 500 mg tablet 500 mg PO Q6H PRN 11/27/17 [History Last Taken Unknown] atorvastatin 20 mg PO QHS 08/11/19 [History Last Taken Unknown] calcium carbonate 600 mg calcium (1,500 mg) tablet 600 mg PO DAILY 12/24/20 [History Last Taken Unknown] cholecalciferol (vitamin D3) 50 mcg (2,000 unit) capsule 4,000 unit PO DAILY cap 12/24/20 [History Last Taken Unknown] lamotrigine 100 mg tablet 100 mg PO DAILY tablet 12/24/20 [History Last Taken Unknown] magnesium 250 mg tablet 250 mg PO DAILY 12/24/20 [History Last Taken Unknown] sulfamethoxazole 800 mg-trimethoprim 160 mg tablet 1 tab PO Q12H 7 Days #14 tab 06/07/21 [Rx Last Taken Unknown] escitalopram oxalate 5 mg PO DAILY 06/08/21 [History Last Taken Unknown] sulfamethoxazole-trimethoprim tab 06/08/21 [History Last Taken Unknown] Allergy/AdvReac Type Severity Reaction Status Date / Time Penicillins AdvReac Severe Rash Verified 06/08/21 16:09 Family History Father CAD (coronary artery disease) CVA (cerebral vascular accident) Surgical History History of excision of tumor of brain meninges History of left breast biopsy (~07/2020) Status post breast reduction Social History (Updated 06/08/21 @ 16:[address] Benjamin Thorpe MD) household members: none Smoking Status: Never smoker alcohol intake: current alcohol intake frequency: a few times a week Alcohol type: wine substance use type: does not use caffeine: No what type of physical activity do you participate in: aerobics frequency: 1-2 times per week duration: 30-45 minutes/day seatbelt use: always do you feel safe at home: Yes ROS ROS ED Constitutional Constitutional ED: Denies chills, fever(s), subjective, sweats or weight loss Eyes Eyes: Denies blurry vision or change in vision ENT ENT ED: Denies rhinorrhea or sore throat Respiratory/Chest Respiratory/Chest: Denies dyspnea Gastrointestinal Gastrointestinal: Reports nausea; Denies diarrhea or vomiting Musculoskeletal Musculoskeletal: Denies arthralgias, back pain, myalgias or neck pain Integumentary Reports abscess and rash Neurologic Neurologic: Denies headache(s) or weakness Hematologic/Lymphatic Hematologic/Lymphatic: Denies anemia, easy bleeding or easy bruising EXAM Physical Exam Const Vital Signs: 06/08/21 16:06 Temperature 96.9 F L Temperature Source Temporal Pulse Rate 76 Respiratory Rate 16 Blood Pressure 136/72 H Blood Pressure Mean 93 Pulse Ox 97 Oxygen Delivery Method Room Air Positive well nourished and well developed General Appearance ED: well developed and NAD HEENT HEENT Narrative: Head is atraumatic normocephalic. Ears normal. Nares patent. Eyes PERRL and EOMs intact bilaterally General Eye ED: Negative for pale conjunctiva or scleral icterus Neck no lymphadenopathy, supple and no JVD Resp normal respiratory effort and clear to auscultation bilaterally Cardio regular rate, regular rhythm, S1 normal heart sound, S2 normal heart sound and no murmurs GI normal to inspection, nondistended, normoactive bowel sounds GI Narrative: There is no inguinal lymphadenopathy on the left Palpation: soft Back/Spine Negative for no CVA tenderness Extremity Negative for normal to inspection Extremity Narrative: Patient has an abscess with surrounding cellulitis. There is no lymphangitis. There is no lymphadenopathy. General Extremety ED: Yes tenderness Neuro oriented x3 and no sensory deficits noted Sensorium / Orientation: alert Psych mental status grossly normal Skin Skin Narrative: Abscess and cellulitis as previously described MDM MDM MDM Narrative Medical decision making narrative: Because patient has constitutional symptoms will obtain BMP, CBC and lactate. She does have hypothermia. Patient was consented for I&D. Concerned this represents staph infection. She is presently on Bactrim. Lab Data Attestation: I reviewed the patient's lab results. Lab results narrative: White count and differential are normal. Electrolyte panel is normal. Patient was discharged to home with appropriate home-going structures Labs: Laboratory Results - last 24 hr 06/08/21 06/08/21 16:45 16:45 WBC 7.1 RBC 4.32 Hgb 12.6 Hct 38.0 MCV 88.0 MCH 29.2 MCHC 33.2 RDW Std Deviation 44.4 H RDW Coeff of Chris 13.7 Plt Count 276 MPV 8.6 Immature Gran % (Auto) 0.400 Neut % (Auto) 67.9 Lymph % (Auto) 16.7 L [place] % (Auto) 11.8 H Eos % (Auto) 2.1 Baso % (Auto) 1.1 H Absolute Neuts (auto) 4.8 Absolute Lymphs (auto) 1.19 Nucleated RBC % 0 Sodium 140 Potassium 3.6 Chloride 107 Carbon Dioxide 26.0 Anion Gap 7 BUN 11 Creatinine 0.84 Estim Creat Clear Calc 60.08 Est GFR (MDRD) Af Amer 87 Est GFR (MDRD) Non-Af 72 BUN/Creatinine Ratio 13.1 Glucose 94 Calcium 9.0 Procedures Other Procedures Procedure(s): I&D of left posterior thigh abscess Patient was consented for I&D. She was explained risk benefits. She did sign consent form. Timeout was performed. The area was anesthetized by local filtration and field block. A 2.5 cm incision was made using a 10 blade. There was free flow up was undertaken the diameter of the cavity is approximately 5 cm. The cavity was irrigated. Wick was placed. Order was placed for nurse to apply dressing. Awaiting laboratory results. Discharge Plan Triage Chief Complaint: Abscess ED Provider: Benjamin Thorpe Dx/Rx/DC Orders Clinical Impression: Cellulitis and abscess of left lower extremity Instructions: ED Abscess Incision And Drainage, ED Cellulitis Prescriptions: No Action acetaminophen 500 mg tablet 500 mg PO Q6H PRN (Reason: Pain) RF: 0 cholecalciferol (vitamin D3) 50 mcg (2,000 unit) capsule 4,000 unit PO DAILY RF: 0 calcium carbonate 600 mg calcium (1,500 mg) tablet 600 mg PO DAILY RF: 0 magnesium 250 mg tablet 250 mg PO DAILY RF: 0 lamotrigine [Lamictal] 100 mg tablet 100 mg PO DAILY RF: 0 sulfamethoxazole-trimethoprim [Bactrim DS] 800-160 mg tablet 1 tab PO Q12H 7 Days Qty: 14 RF: 0 atorvastatin 10 MG tablet 20 mg PO QHS RF: 0 sulfamethoxazole-trimethoprim 800-160 mg tablet RF: 0 escitalopram oxalate 10 mg tablet 5 mg PO DAILY RF: 0 Primary Care Provider: Alhaji Knutson Referrals: Alhaji Knutson MD [Primary Care Provider] - 2 Days for wound check Activity Restrictions/Additional Instructions: 1. Take Bactrim until gone 2. If you have a temperature greater than 100, shaking chills or red streak up your leg return to the emergency department Disposition Disposition: Home, Self Care
[2021-06-08 17:02] LABS: Absolute Lymphocyte Count 1.19 X10^3/uL (0.83-4.51); Absolute Neutrophil Count 4.8 X10^3/uL (2.0-7.7); Basophil# 0.08 X10^3/uL; Basophil% 1.1 % (0-1); Eosinophil# 0.15 X10^3/uL; Eosinophils% 2.1 % (0-5); Hemoglobin 12.6 g/dL (12.0-15.0); Lymphocyte # 1.19 X10^3/ul (0.83-4.51); Lymphocyte % 16.7 % (19-41); Mean Corp Hgb Conc 33.2 g/dL (32-36); Mean Corpuscular Hgb 29.2 pg (27.0-32.0); Mean Platelet Vol. 8.6 fl (6.2-12.0); Monocyte# 0.84 X10^3/uL; Monocyte% 11.8 % (0-10); NRBC Flagged by Analyzer 0 % (0-5); Neutrophil # 4.84 X10^3/uL (2.7-7.7); Neutrophil % 67.9 % (47-70); Platelet Count 276 K/mm3 (150-450); RBC Distribution Width CV 13.7 % (11.6-14.6); RBC Distribution Width SD 44.4 fl (35.1-43.9); Red Blood Count 4.32 M/mm3 (4.2-5.4); White Blood Count 7.1 K/mm3 (4.4-11.0)
[2021-06-08 17:19] LABS: Anion Gap 7 (5-15); BUN 11 mg/dL (7-18); BUN/Creat Ratio 13.1 RATIO (10-20); Chloride 107 mmol/L (98-107); Creatinine, Serum 0.84 mg/dL (0.55-1.02); EST Glomerular Filtration Rate 72 mL/min (>60); Est Glom Filt Rate - Afr Amer 87 mL/min (>60); Estimated Creatinine Clearance 60.08 ml/min; Glucose 94 mg/dL (74-106); Potassium 3.6 mmol/L (3.5-5.1); Sodium Level 140 mmol/L (136-145)
[2021-06-08] MEDS: Lidocaine 1% (20 ml mdv) 20 ML Vial INFILT (17:46)
[2021-06-08 18:25] VITALS: RESP 18
== END 2021-06-08 18:26 | disposition home or self-care (01) ==
PROVIDERS: Emergency Provider Emergency Medicine; PCP Family Medicine
DX: L02.416 Cutaneous abscess of left lower limb (principal); L03.116 Cellulitis of left lower limb; E78.00 Pure hypercholesterolemia, unspecified; Z79.899 Other long term (current) drug therapy
CPT/HCPCS: 80048; 85025; 99283; A4216

== ENCOUNTER → 2021-07-19 09:06 | Outpatient (CLI) | payer MEDICARE, SELFPAY ==
[2021-07-19 10:53] LABS: ALB/GLOB Ratio 0.8 RATIO (0.9-2.4); AST(SGOT) 35 U/L (15-37); Alanine Aminotransfer ALT/SGPT 32 U/L (13-56); Albumin, Serum 3.4 g/dL (3.2-5.0); Alkaline Phosphatase 65 U/L (45-117); Anion Gap 4 (5-15); BUN 17 mg/dL (7-18); BUN/Creat Ratio 25.5 RATIO (10-20); Chloride 107 mmol/L (98-107); Cholesterol 212 mg/dL (200); Creatinine, Serum 0.67 mg/dL (0.55-1.02); EST Glomerular Filtration Rate 94 mL/min (>60); Est Glom Filt Rate - Afr Amer 114 mL/min (>60); Glucose 80 mg/dL (74-106); High Density Lipoprotein 102 mg/dL; Magnesium 2.2 mg/dL (1.6-2.6); Potassium 4.1 mmol/L (3.5-5.1); Protein, Total 7.4 g/dL (6.4-8.2); Sodium Level 140 mmol/L (136-145); Triglycerides 48 mg/dL; Very Low Density Lipoprotein 10 mg/dL (5-40)
[2021-07-19 10:59] LABS: Vitamin D,25 Hydroxy 49.3 ng/mL
== END ==
PROVIDERS: PCP Family Medicine; Referring Provider Family Medicine; Visit Provider Family Medicine
DX: E78.5 Hyperlipidemia, unspecified (principal); E55.9 Vitamin D deficiency, unspecified; R03.0 Elevated blood-pressure reading, without diagnosis of hypertension
CPT/HCPCS: 36415; 80053; 80061; 82306; 83735

== ENCOUNTER → 2021-09-03 | Outpatient (CLI) | payer MEDICARE, SELFPAY ==
[2021-09-05 11:01] LABS: HPV APTIMA, High Risk Negative (Negative)
== END | disposition home or self-care (01) ==
LOC: LABSPEC 10:54
PROVIDERS: PCP Family Medicine; Visit Provider Obstetrics & Gynecology
DX: Z12.4 Encounter for screening for malignant neoplasm of cervix (principal)
CPT/HCPCS: 87624; 88175; G0145

== ENCOUNTER → 2022-01-22 | Outpatient (CLI) | payer MEDICARE, SELFPAY | END | disposition home or self-care (01) | PROVIDERS: PCP Family Medicine; Visit Provider Physician Assistant | DX: J02.9 Acute pharyngitis, unspecified (principal) | CPT/HCPCS: 87070 ==

== ENCOUNTER 2022-03-24 16:16 | Emergency (ER) | payer MEDICARE, SELFPAY ==
[2022-03-24 16:18] VITALS: BP 143/80; PULSE 68; RESP 18; TEMP 36.8; O2SAT 99; BMI 27.5
--- NOTE | 2022-03-24 16:25 | RAD_ITS ---
STUDY: X-RAY - RIGHT WRIST REASON FOR EXAM: Female, 66 years old. trauma pain TECHNIQUE: 3 view(s) of the wrist were obtained. COMPARISON: 03/24/2022 FINDINGS: No evidence for acute metacarpal fractures. Metacarpal bases are intact. No lunate or perilunate dislocation. Subtle lucency in the distal radius noted possibly a nondisplaced fracture. RAD/Wrist min 3 Views IMPRESSION: Subtle linear lucency in the distal radius nondisplaced fracture is not excluded. Electronically Signed: Supa Barreto MD at 16:53 EDT ,
--- NOTE | 2022-03-24 16:30 | RAD_ITS ---
STUDY: X-RAY - LEFT WRIST REASON FOR EXAM: Female, 66 years old. trauma pain TECHNIQUE: 3 view(s) of the wrist were obtained. COMPARISON: None. FINDINGS: Acute fracture of the base of the metacarpal bone noted with likely intra-articular extension. RAD/Wrist min 3 Views IMPRESSION: Acute comminuted fracture of the base of the fifth metacarpal bone Electronically Signed: Supa Barreto MD at 16:54 EDT ,
--- NOTE | 2022-03-24 18:24 | EX.ED.UPPERE ---
HPI History of Present Illness HPI Narrative: Right wrist and left hand injury. Chief Complaint: Upper Extremity Injury Informant: patient and family Occured/Mechanism Mechanism/Context: Yes injury and Yes blunt trauma Onset/Context/Timing Onset: Today and Hours Context: Sudden Onset Timing: Continuous Quality of Pain: Sharp, Dull and Aching Current Severity: Mild Maximum Severity: Mild Associated Symptoms Associated Symptoms: Negative for Parasthesia, Weakness or Loss of Funtion Narrative Narrative: 66-year-old female past medical history of a prior benign brain tumor resection with seizure disorder for which she is on antiseizure medications. She was cutting the grass driving the tractor. As she was going by the swing set the swing got caught on the tractor reported over she saw it coming down went to catch it with both hands. Now having pain on her left hand along the fifth metacarpal and her right wrist. It did not hit her in the head. No other significant injuries. Prior similar symptoms: No Recent Illness/Hospitalization: No [facility] Medical History Abnormal mammogram of left breast Acute pharyngitis, unspecified Anxiety Chest pain Contact with and (suspected) exposure to other viral communicable diseases High cholesterol Near syncope Palpitations Parotitis Premature atrial contraction Premature ventricular contraction Tachycardia Home Medications acetaminophen 500 mg tablet 500 mg PO Q6H PRN Pain 11/27/17 [History Last Taken Unknown] atorvastatin 10 mg tablet 20 mg PO QHS 08/11/19 [History Last Taken Unknown] calcium carbonate 600 mg calcium (1,500 mg) tablet 600 mg PO DAILY 12/24/20 [History Last Taken Unknown] cholecalciferol (vitamin D3) 50 mcg (2,000 unit) capsule 4,000 unit PO DAILY 12/24/20 [History Last Taken Unknown] lamotrigine 100 mg tablet (Lamictal) 100 mg PO DAILY 12/24/20 [History Last Taken Unknown] magnesium 250 mg tablet 250 mg PO DAILY 12/24/20 [History Last Taken Unknown] escitalopram oxalate 10 mg tablet 5 mg PO DAILY 06/08/21 [History Last Taken Unknown] Allergy/AdvReac Type Severity Reaction Status Date / Time Penicillins AdvReac Severe Rash Verified 03/24/22 16:17 Family History Father CAD (coronary artery disease) CVA (cerebral vascular accident) Surgical History History of excision of tumor of brain meninges History of left breast biopsy (~07/2020) Status post breast reduction Social History household members: none Smoking Status: Never smoker alcohol intake: current alcohol intake frequency: a few times a week Alcohol type: wine substance use type: does not use caffeine: No what type of physical activity do you participate in: aerobics frequency: 1-2 times per week duration: 30-45 minutes/day seatbelt use: always do you feel safe at home: Yes ROS ROS ED ROS Narrative No recent illness. Review of Systems ROS Unobtainable: Denies due to encephalopathy Constitutional Constitutional ED: Denies chills or fever(s) Eyes Eyes: Denies blurry vision ENT ENT ED: Denies ear pain Cardiovascular Cardiovascular: Denies chest pain Respiratory/Chest Respiratory/Chest: Denies cough Gastrointestinal Gastrointestinal: Denies abdominal pain Genitourinary Genitourinary ED: Denies dysuria Musculoskeletal Musculoskeletal: Denies back pain Integumentary Denies abscess Neurologic Neurologic: Denies headache(s) Psychiatric Psychiatric: Denies anxiety Endocrine Endocrinology: Denies cold intolerance Hematologic/Lymphatic Hematologic/Lymphatic: Denies easy bleeding Allergic/Immunologic Allergic/Immunologic ED: Denies mouth swelling EXAM Physical Exam Narrative Exam Narrative: Well-appearing 66-year-old female. No acute distress. Vital signs stable afebrile. H EENT exam unremarkable. Neck and back nontender. Lungs are clear. Chest wall nontender. No bruising. Abdomen soft nontender. Moving all 4 extremities. Right wrist is tender at the distal radius with mild swelling and decreased range of motion. Right hand forearm elbow and shoulder are nontender. Her left hand has tenderness along the fifth metacarpal. Skin is closed. Her left wrist, forearm, elbow and shoulder are nontender. Lower extremities are normal. Neurologic exam is normal. Const Vital Signs: 03/24/22 16:18 Temperature 98.2 F Temperature Source Temporal Pulse Rate 68 Respiratory Rate 18 Blood Pressure 143/80 H Blood Pressure Mean 101 Pulse Ox 99 Oxygen Delivery Method Room Air Positive well nourished and well developed; Negative for obese, cachectic, contractures or unkempt General Appearance ED: well developed; Negative for unkempt, cachectic or contractures Nutritional Appearance: Negative for cachectic or obese HEENT Reports moist mucous membranes normocephalic; Negative for atraumatic or trauma Eyes PERRL and EOMs intact bilaterally Neck full ROM and supple General: Negative for tenderness Lymph Lymphatic: Negative for other Chest Wall inspection of chest normal and palpation of chest normal Resp normal respiratory effort and clear to auscultation bilaterally Effort and Inspection: Negative for pain with movement Auscultation: Negative for rales, rhonchi or wheezes Cardio regular rate, regular rhythm, S1 normal heart sound, S2 normal heart sound and no murmurs Rate: Negative for bradycardia Rhythm: Negative for abnormal rhythm GI non-tender, non-distended and no masses Inspection: Negative for abdominal distention Auscultation: normoactive bowel sounds Palpation: soft; Negative for tender or guarding Back/Spine no CVA tenderness General Back: Negative for CVA tenderness Cervical Spine: Negative for cervical spine tenderness Thoracic Spine / Upper Back: Negative for thoracic spinal tenderness Lumbar Spine / Lower Back: Negative for lumbar spinal tenderness Extremity full ROM; Negative for normal to inspection Extremity Narrative: Left hand tenderness along the proximal aspect of the fifth metacarpal. Full range of motion. No deformity. Left wrist nontender. Right hand nontender. Right wrist and distal radius tender. Mild swelling. Decreased range of motion. General Extremety ED: Negative for edema General Extremity: Negative for edema Neuro oriented x3, moves all extremities, no focal motor deficits and no sensory deficits noted Sensorium / Orientation: alert, oriented to person, oriented to place and oriented to time; Negative for orientation impaired, lethargic, stuporous or other Motor Exam: strength 5/5 throughout Psych mental status grossly normal Appearance: Negative for unkempt Attitude: No agitated Mood & Affect: Negative for depressed or anxious Skin General Skin Exam: Negative for petechiae Lesions: no lesions Rashes: no rashes Trauma: no lacerations or abrasions MDM MDM MDM Narrative Medical decision making narrative: 66-year-old female injuries to her right wrist and left hand with distal radius nondisplaced fracture on the right and a left fifth metacarpal fracture. Both will be splinted. She will be discharged to home with orthopedic follow-up. Radiography Diagnostic Testing: Clinical Impression(s) from Imaging Studies Wrist X-Ray 03/24/22 16:25 IMPRESSION: Subtle linear lucency in the distal radius nondisplaced fracture is not excluded. Electronically Signed: Supa Barreto MD at 16:53 EDT , Wrist X-Ray 03/24/22 16:30 IMPRESSION: Acute comminuted fracture of the base of the fifth metacarpal bone Electronically Signed: Supa Barreto MD at 16:54 EDT , Procedures Upper Extremity Splints Upper Extremity Splint: Orthoglass and Ulnar gutter Splint Fabrication: Fabricated Location: Left Other Procedures Procedure(s): Patient had 2 splints. Left hand ulnar gutter splint. Right wrist AP splint. Ortho-Glass. Well-padded. Short arm. Discharge Plan Triage Chief Complaint: Upper Extremity Injury ED Provider: Pepe Linares Dx/Rx/DC Orders Clinical Impression: Wrist fracture, right, Closed fracture of metacarpal of left hand Instructions: ED Closed Hand Fracture (Adult), ED Fracture, Wrist, General Prescriptions: No Action acetaminophen 500 mg tablet 500 mg PO Q6H PRN (Reason: Pain) cholecalciferol (vitamin D3) 50 mcg (2,000 unit) capsule 4,000 unit PO DAILY calcium carbonate 600 mg calcium (1,500 mg) tablet 600 mg PO DAILY magnesium 250 mg tablet 250 mg PO DAILY lamotrigine [Lamictal] 100 mg tablet 100 mg PO DAILY atorvastatin 10 MG tablet 20 mg PO QHS escitalopram oxalate 10 mg tablet 5 mg PO DAILY Primary Care Provider: Alhaji Knutson Referrals: Alhaji Knutson MD [Primary Care Provider] - Monty Hussein MD [STAFF PHYSICIAN] - As soon as possible Activity Restrictions/Additional Instructions: You have a fractured right distal radius. You also have a fracture of the left fifth or small metacarpal. Keep splint dry and clean. Keep the splint on. Call and follow-up with the orthopedic doctor soon as possible. Ice and elevate. Motrin and Tylenol for pain. Disposition Disposition: Home, Self Care
== END 2022-03-24 18:46 | disposition home or self-care (01) ==
PROVIDERS: Emergency Provider Emergency Medicine; PCP Family Medicine; Visit Provider Emergency Medicine
DX: S52.501A Unspecified fracture of the lower end of right radius, initial encounter for closed fracture (principal); G40.909 Epilepsy, unspecified, not intractable, without status epilepticus; S62.317A Displaced fracture of base of fifth metacarpal bone, left hand, initial encounter for closed fracture; W23.0XXA Caught, crushed, jammed, or pinched between moving objects, initial encounter; Y93.H9 Activity, other involving exterior property and land maintenance, building and construction; Y99.8 Other external cause status; E78.00 Pure hypercholesterolemia, unspecified; Z79.899 Other long term (current) drug therapy
CPT/HCPCS: 29126; 29125; 29130; 73110; 99283

== ENCOUNTER → 2022-04-08 | Outpatient (CLI) | payer MEDICARE, SELFPAY ==
[2022-04-08 12:37] LABS: Absolute Lymphocyte Count 1.91 X10^3/uL (0.83-4.51); Absolute Neutrophil Count 3.4 X10^3/uL (2.0-7.7); Basophil# 0.07 X10^3/uL; Basophil% 1.2 % (0-1); Eosinophil# 0.14 X10^3/uL; Eosinophils% 2.3 % (0-5); Hematocrit 42.4 % (37-47); Hemoglobin 13.8 g/dL (12.0-15.0); Lymphocyte # 1.91 X10^3/ul (0.83-4.51); Lymphocyte % 31.4 % (19-41); Mean Corp Hgb Conc 32.5 g/dL (32-36); Mean Corpuscular Hgb 29.2 pg (27.0-32.0); Mean Corpuscular Volume 89.6 fL (81-99); Mean Platelet Vol. 8.7 fl (6.2-12.0); Monocyte# 0.52 X10^3/uL; Monocyte% 8.6 % (0-10); NRBC Flagged by Analyzer 0 % (0-5); Neutrophil # 3.41 X10^3/uL (2.7-7.7); Platelet Count 359 K/mm3 (150-450); RBC Distribution Width CV 14.5 % (11.6-14.6); RBC Distribution Width SD 47.8 fl (35.1-43.9); Red Blood Count 4.73 M/mm3 (4.2-5.4); White Blood Count 6.1 K/mm3 (4.4-11.0)
[2022-04-08 12:48] LABS: ALB/GLOB Ratio 0.9 RATIO (0.9-2.4); AST(SGOT) 30 U/L (15-37); Alanine Aminotransfer ALT/SGPT 32 U/L (13-56); Albumin, Serum 3.6 g/dL (3.2-5.0); Alkaline Phosphatase 91 U/L (45-117); Anion Gap 7 (5-15); BUN 16 mg/dL (7-18); BUN/Creat Ratio 22.6 RATIO (10-20); Calcium,Total 9.2 mg/dL (8.5-10.1); Chloride 107 mmol/L (98-107); Cholesterol 215 mg/dL (200); Creatinine, Serum 0.71 mg/dL (0.55-1.02); EST Glomerular Filtration Rate 88 mL/min (>60); Est Glom Filt Rate - Afr Amer 106 mL/min (>60); Globulin 3.8 g/dL (2.2-4.2); Glucose 101 mg/dL (74-106); High Density Lipoprotein 91 mg/dL; Potassium 4.4 mmol/L (3.5-5.1); Protein, Total 7.4 g/dL (6.4-8.2); Sodium Level 139 mmol/L (136-145); Triglycerides 93 mg/dL; Very Low Density Lipoprotein 19 mg/dL (5-40)
[2022-04-08 12:57] LABS: Vitamin D,25 Hydroxy 55.8 ng/mL
[2022-04-09 12:41] LABS: Hemoglobin A1c 5.5 % (3.8-5.6)
== END | disposition home or self-care (01) ==
LOC: MFPLAB 10:37
PROVIDERS: PCP Family Medicine; Referring Provider Family Medicine; Visit Provider Family Medicine
DX: R73.09 Other abnormal glucose (principal); E78.5 Hyperlipidemia, unspecified; E55.9 Vitamin D deficiency, unspecified
CPT/HCPCS: 36415; 80053; 80061; 82306; 83036; 85025

== ENCOUNTER → 2022-06-25 | Outpatient (CLI) | payer MEDICARE, SELFPAY ==
--- NOTE | 2022-06-25 10:36 | BI_ITS ---
MAMMOGRAPHY - BILATERAL SCREENING 3-D TOMOSYNTHESIS REASON FOR EXAM: Female, 66 years old. Routine screening PERTINENT HISTORY: Aunt with breast cancer, previous reduction surgery.. TECHNIQUE: 2-D mammograms and 3-D Tomosynthesis of the breast (s) were performed. CAD was performed. COMPARISON: 07/03/2020 FINDINGS: The breast composition is heterogeneously dense that can obscure small breast masses. Scattered benign calcifications are seen. No dense spiculated masses or suspicious microcalcifications are identified. Stable architectural distortion from previous reduction surgery. There is no skin thickening or retraction. Stable chunky postoperative calcification in the right breast. There has been no significant change since the prior study. BI/SCRN MAMM (CAD)W/KARINE BILAT IMPRESSION: No mammographic signs of malignancy. Routine yearly mammograms recommended. ASSESSMENT CATEGORY: BIRADS Category 2: Benign. A letter regarding these results will be sent to the patient by the facility within 30 days. FOLLOW UP RECOMMENDATION: Yearly follow up mammogram recommended. (A) Approximately 10% of breast cancers are not detected by mammography. A normal mammogram should not delay biopsy of a clinically suspicious abnormality. Electronically Signed: Evert Gutierrez MD at 11:44 EDT ,
== END | disposition home or self-care (01) ==
PROVIDERS: PCP Family Medicine; Visit Provider Family Medicine
DX: Z12.31 Encounter for screening mammogram for malignant neoplasm of breast (principal); Z80.3 Family history of malignant neoplasm of breast
CPT/HCPCS: 77063; 77067

== ENCOUNTER → 2022-10-29 | Outpatient (CLI) | payer MEDICARE, SELFPAY ==
[2022-10-29 12:43] LABS: Absolute Lymphocyte Count 1.61 X10^3/uL (0.83-4.51); Absolute Neutrophil Count 2.5 X10^3/uL (2.0-7.7); Basophil# 0.06 X10^3/uL; Basophil% 1.3 % (0-1); Eosinophil# 0.12 X10^3/uL; Eosinophils% 2.5 % (0-5); Hematocrit 42.1 % (37-47); Hemoglobin 13.6 g/dL (12.0-15.0); Lymphocyte # 1.61 X10^3/ul (0.83-4.51); Lymphocyte % 33.6 % (19-41); Mean Corp Hgb Conc 32.3 g/dL (32-36); Mean Corpuscular Hgb 28.6 pg (27.0-32.0); Mean Corpuscular Volume 88.4 fL (81-99); Mean Platelet Vol. 8.8 fl (6.2-12.0); Monocyte# 0.52 X10^3/uL; Monocyte% 10.9 % (0-10); NRBC Flagged by Analyzer 0 % (0-5); Neutrophil # 2.47 X10^3/uL (2.7-7.7); Neutrophil % 51.5 % (47-70); Platelet Count 331 K/mm3 (150-450); RBC Distribution Width CV 13.6 % (11.6-14.6); RBC Distribution Width SD 43.8 fl (35.1-43.9); Red Blood Count 4.76 M/mm3 (4.2-5.4); White Blood Count 4.8 K/mm3 (4.4-11.0)
[2022-10-29 13:20] LABS: Vitamin D,25 Hydroxy 43.6 ng/mL
[2022-10-29 13:32] LABS: ALB/GLOB Ratio 0.9 RATIO (0.9-2.4); AST(SGOT) 37 U/L (15-37); Alanine Aminotransfer ALT/SGPT 33 U/L (13-56); Albumin, Serum 3.6 g/dL (3.2-5.0); Alkaline Phosphatase 70 U/L (45-117); Anion Gap 9 (5-15); BUN 18 mg/dL (7-18); BUN/Creat Ratio 26.2 RATIO (10-20); Calcium,Total 9.6 mg/dL (8.5-10.1); Chloride 105 mmol/L (98-107); Cholesterol 226 mg/dL (200); Creatinine, Serum 0.69 mg/dL (0.55-1.02); EST Glomerular Filtration Rate 91 mL/min (>60); Est Glom Filt Rate - Afr Amer 110 mL/min (>60); Globulin 3.9 g/dL (2.2-4.2); Glucose 86 mg/dL (74-106); High Density Lipoprotein 89 mg/dL; Potassium 4.1 mmol/L (3.5-5.1); Protein, Total 7.5 g/dL (6.4-8.2); Sodium Level 139 mmol/L (136-145); Triglycerides 56 mg/dL; Very Low Density Lipoprotein 11 mg/dL (5-40)
== END | disposition home or self-care (01) ==
LOC: MFPLAB 10:39
PROVIDERS: PCP Family Medicine; Referring Provider Family Medicine; Visit Provider Family Medicine
DX: E78.5 Hyperlipidemia, unspecified (principal); M85.80 Other specified disorders of bone density and structure, unspecified site
CPT/HCPCS: 36415; 80053; 80061; 82306; 85025

== ENCOUNTER → 2022-12-15 | Outpatient (CLI) | payer MEDICARE, SELFPAY ==
--- NOTE | 2022-12-15 08:10 | RAD_ITS ---
EXAM: FL Esophagram, Double Contrast HISTORY: GERD, hoarseness COMPARISON: None Technique: Air contrast study. Fluoroscopy time 1 minute 14 seconds. 13 images obtained, dosage of 18.31mGy FINDINGS: Swallowing was initiated normally. No nasopharyngeal reflux or aspiration. No Zenker diverticulum noted on the lateral view. Normal peristaltic activity noted in the esophagus. No mucosal lesion or diverticulum noted. No evidence of hiatal hernia but there was evidence of GE reflux. A 13 mm barium pill passed through the esophagus without difficulty. RAD/Esophagus Dual Contrast IMPRESSION: GE reflux Electronically Signed: Evert Gutierrez MD at 9:11 EDT ,
== END | disposition home or self-care (01) ==
LOC: RAD 07:50
PROVIDERS: PCP Family Medicine; Referring Provider Otolaryngology; Visit Provider Otolaryngology
DX: K21.9 Gastro-esophageal reflux disease without esophagitis (principal)
CPT/HCPCS: 74221

== ENCOUNTER → 2023-07-08 | Outpatient (CLI) | payer MEDICARE, SELFPAY ==
--- NOTE | 2023-07-08 10:01 | BI_ITS ---
MAMMOGRAPHY - BILATERAL SCREENING REASON FOR EXAM: Female, 67 years old. Routine annual screening examination. PERTINENT HISTORY: Aunt with breast cancer. Bilateral breast reduction surgery. TECHNIQUE: Digital bilateral breast karine (3D mammographic acquisition) in the CC and MLO projections. 2-D mediolateral oblique (MLO) and craniocaudad (CC) views of both breasts were obtained. CAD: Full Field Digital Mammography with Computer Added Detection was performed. COMPARISON: Comparison is made with prior study dated June 25, 2022 and June 07, 2021. FINDINGS: Breast Composition: The breasts are heterogeneously dense, which may obscure small masses. There are no dominant masses or suspicious calcifications. Stable dense calcified nodule in the inferior central portion of the right breast. No other significant abnormalities are identified. There has been no significant change since the prior study. BI/SCRN MAMM (CAD)W/KARINE BILAT IMPRESSION: Stable bilateral screening mammogram. Yearly follow-up mammogram recommended. (A) ASSESSMENT CATEGORY: BIRADS Category 2: Benign. A letter regarding these results will be sent to the patient by the facility within 30 days. Approximately 10% of breast cancers are not detected by mammography. A normal mammogram should not delay biopsy of a clinically suspicious abnormality. [id number] Electronically Signed: Eric Judge MD at 11:15 EDT ,
== END | disposition home or self-care (01) ==
LOC: OPBI 10:00
PROVIDERS: PCP Family Medicine; Referring Provider Nurse Practitioner Family; Visit Provider Nurse Practitioner Family
DX: Z12.31 Encounter for screening mammogram for malignant neoplasm of breast (principal)
CPT/HCPCS: 77063; 77067

== ENCOUNTER → 2023-09-30 | Outpatient (CLI) | payer MEDICARE, SELFPAY ==
[2023-09-30 12:25] LABS: Absolute Lymphocyte Count 1.66 X10^3/uL (0.83-4.51); Absolute Neutrophil Count 2.6 X10^3/uL (2.0-7.7); Basophil# 0.08 X10^3/uL; Basophil% 1.6 % (0-1); Eosinophil# 0.08 X10^3/uL; Eosinophils% 1.6 % (0-5); Hematocrit 41.6 % (37-47); Hemoglobin 13.5 g/dL (12.0-15.0); Lymphocyte # 1.66 X10^3/ul (0.83-4.51); Lymphocyte % 34.2 % (19-41); Mean Corp Hgb Conc 32.5 g/dL (32-36); Mean Corpuscular Volume 89.3 fL (81-99); Mean Platelet Vol. 9.1 fl (6.2-12.0); Monocyte# 0.42 X10^3/uL; Monocyte% 8.6 % (0-10); NRBC Flagged by Analyzer 0 % (0-5); Neutrophil # 2.61 X10^3/uL (2.7-7.7); Neutrophil % 53.8 % (47-70); Platelet Count 295 K/mm3 (150-450); RBC Distribution Width CV 14.2 % (11.6-14.6); Red Blood Count 4.66 M/mm3 (4.2-5.4); White Blood Count 4.9 K/mm3 (4.4-11.0)
[2023-09-30 13:01] LABS: Vitamin D,25 Hydroxy 85.4 ng/mL
[2023-09-30 13:19] LABS: AST(SGOT) 34 U/L (15-37); Alanine Aminotransfer ALT/SGPT 32 U/L (13-56); Albumin, Serum 3.6 g/dL (3.2-5.0); Alkaline Phosphatase 61 U/L (45-117); Anion Gap 6 (5-15); BUN 16 mg/dL (7-18); BUN/Creat Ratio 20.8 RATIO (10-20); Calcium,Total 9.1 mg/dL (8.5-10.1); Chloride 107 mmol/L (98-107); Cholesterol 224 mg/dL (200); Creatinine, Serum 0.77 mg/dL (0.55-1.02); EST Glomerular Filtration Rate 80 mL/min (>60); Est Glom Filt Rate - Afr Amer 96 mL/min (>60); Globulin 3.5 g/dL (2.2-4.2); Glucose 130 mg/dL (74-106); High Density Lipoprotein 95 mg/dL; Potassium 3.9 mmol/L (3.5-5.1); Protein, Total 7.1 g/dL (6.4-8.2); Sodium Level 138 mmol/L (136-145); Thyroid Stim Hormone (TSH) 2.94 uIU/mL (0.358-3.74); Triglycerides 76 mg/dL; Very Low Density Lipoprotein 15 mg/dL (5-40)
[2023-09-30 16:12] LABS: Hemoglobin A1c 5.4 % (3.8-5.6)
== END | disposition home or self-care (01) ==
LOC: MFPLAB 10:59
PROVIDERS: PCP Family Medicine; Visit Provider Family Medicine
DX: Z00.00 Encounter for general adult medical examination without abnormal findings (principal); E78.5 Hyperlipidemia, unspecified; E55.9 Vitamin D deficiency, unspecified; R73.09 Other abnormal glucose
CPT/HCPCS: 36415; 80053; 80061; 82306; 83036; 84443; 85025

== ENCOUNTER → 2023-11-03 | Outpatient (CLI) | payer MEDICARE, SELFPAY ==
--- NOTE | 2023-11-03 13:26 | BD_ITS ---
STUDY: DUAL ENERGY X-RAY ABSORPTIOMETRY / DXA REASON FOR EXAM: Female, 68 years old. 733.90OsteopeniaBONE DENSITY REASON FOR EXAM TECHNIQUE: Bone Mineral Density (BMD) measurements of lumbar spine and bilateral hips were obtained. COMPARISON: Comparison is made with prior study July 03, 2020. FINDINGS: Lumbar Spine (L1-L4): g/cm2 (0.941) / T-score (-1.0) / Z-score (1.0) Findings are suggestive of normal bone density with a low fracture risk. Left Femur Total: g/cm2 (0.800) / T-score (-1.2) / Z-score (0.2) Left Femoral Neck: g/cm2 (0.653) / T-score (-1.8) / Z-score (-0.1) Right Femur Total: g/cm2 (0.827) / T-score (-0.9) / Z-score (0.4) Right Femoral Neck: g/cm2 (0.737) / T-score (-1.0) / Z-score (0.7) The T-Scores on the most recent prior examination were: Lumbar Spine (L1-L4): There has been worsening of bone density since the previous examination. Left Femur Total: which represents a worsening of 0.7%. Right Femur Total: which represents a worsening of 0.2%. BD/Dexa Bone Density Study IMPRESSION: The patient is considered osteopenic as outlined below according to World Short[employer] Organization (WHO) criteria with a moderate fracture risk. There has been worsening of bone density since the previous examination. Reference Information: The T-score is the number of standard deviations above or below the standard which is normal for young adults at their peak bone mineral density. The World Health Organization (WHO) interprets the T-scores as follows: Above -1 Normal bone density Between -1 and -2.5 Osteopenia Equal to / or below -2.5 Osteoporosis As a practical clinical guideline, osteopenia may be graded as follows: Mild -1 through -1.5 Moderate -1.6 through -2.0 Severe -2.1 through -2.4 The Z-score is the number of standard deviations above or below age-matched controls. A Z-score of less than -1.5 would be considered abnormal. References: 1. NIH Osteoporosis and Related Bone Diseases www osteo.org 2. International Society for Clinical Densitometry www iscd.org 3. National Osteoporosis Foundation www nof.org Electronically Signed: Eric Judge MD at 9:07 EST ,
== END | disposition home or self-care (01) ==
LOC: OPBD 13:23
PROVIDERS: PCP Family Medicine; Referring Provider Family Medicine; Visit Provider Family Medicine
DX: Z13.820 Encounter for screening for osteoporosis (principal); M85.80 Other specified disorders of bone density and structure, unspecified site; Z78.0 Asymptomatic menopausal state
CPT/HCPCS: 77080

== ENCOUNTER → 2024-07-14 | Outpatient (CLI) | payer MEDICARE, SELFPAY | END | disposition home or self-care (01) | LOC: OPBI 10:36 | PROVIDERS: PCP Family Medicine; Referring Provider Family Medicine; Visit Provider Family Medicine | DX: Z12.31 Encounter for screening mammogram for malignant neoplasm of breast (principal) | CPT/HCPCS: 77063; 77067 ==

== ENCOUNTER → 2024-10-05 | Outpatient (CLI) | payer MEDICARE, SELFPAY ==
[2024-10-05 12:25] LABS: Absolute Lymphocyte Count 1.49 X10^3/uL (0.83-4.51); Absolute Neutrophil Count 1.9 X10^3/uL (2.0-7.7); Basophil# 0.07 X10^3/uL; Basophil% 1.7 % (0-1); Eosinophil# 0.13 X10^3/uL; Eosinophils% 3.2 % (0-5); Hematocrit 42.9 % (37-47); Hemoglobin 14.2 g/dL (12.0-15.0); Lymphocyte # 1.49 X10^3/ul (0.83-4.51); Lymphocyte % 36.8 % (19-41); Mean Corp Hgb Conc 33.1 g/dL (32-36); Mean Corpuscular Hgb 29.1 pg (27.0-32.0); Mean Corpuscular Volume 87.9 fL (81-99); Mean Platelet Vol. 8.9 fl (6.2-12.0); Monocyte# 0.42 X10^3/uL; Monocyte% 10.4 % (0-10); NRBC Flagged by Analyzer 0 % (0-5); Neutrophil # 1.93 X10^3/uL (2.7-7.7); Neutrophil % 47.7 % (47-70); Platelet Count 294 K/mm3 (150-450); RBC Distribution Width CV 13.9 % (11.6-14.6); RBC Distribution Width SD 44.9 fl (35.1-43.9); Red Blood Count 4.88 M/mm3 (4.2-5.4); White Blood Count 4.1 K/mm3 (4.4-11.0)
[2024-10-05 12:38] LABS: Vitamin D,25 Hydroxy 58.8 ng/mL
[2024-10-05 13:09] LABS: AST(SGOT) 32 U/L (15-37); Alanine Aminotransfer ALT/SGPT 31 U/L (13-56); Albumin, Serum 3.7 g/dL (3.2-5.0); Alkaline Phosphatase 70 U/L (45-117); Anion Gap 9 (5-15); BUN 16 mg/dL (7-18); BUN/Creat Ratio 22.6 RATIO (10-20); Calcium,Total 9.5 mg/dL (8.5-10.1); Chloride 108 mmol/L (98-107); Cholesterol 238 mg/dL (200); Creatinine, Serum 0.71 mg/dL (0.55-1.02); EST Glomerular Filtration Rate 87 mL/min (>60); Est Glom Filt Rate - Afr Amer 106 mL/min (>60); Globulin 3.6 g/dL (2.2-4.2); Glucose 87 mg/dL (74-106); High Density Lipoprotein 108 mg/dL; Potassium 3.7 mmol/L (3.5-5.1); Protein, Total 7.3 g/dL (6.4-8.2); Sodium Level 141 mmol/L (136-145); Triglycerides 68 mg/dL; Very Low Density Lipoprotein 14 mg/dL (5-40)
== END | disposition home or self-care (01) ==
LOC: MFPLAB 11:03
PROVIDERS: PCP Family Medicine; Referring Provider Family Medicine; Visit Provider Family Medicine
DX: E78.5 Hyperlipidemia, unspecified (principal); E55.9 Vitamin D deficiency, unspecified
CPT/HCPCS: 36415; 80053; 80061; 82306; 85025

== ENCOUNTER → 2025-08-01 | Outpatient (CLI) | payer MEDICARE, SELFPAY ==
--- NOTE | 2025-08-01 16:36 | BI_ITS ---
EXAM: SCRN MAMM (CAD)W/KARINE BILAT DATE: 08/01/2025 CLINICAL HISTORY: F, Age 69 y/o , BREAST CANCER SCREENING TECHNIQUE: Procedure Code: [id number] Modality: MG Procedure: SCRN MAMM (CAD)W/KARINE BILAT COMPARISON: Prior exam(s) dated 07/14/2024, 07/08/2023 and 06/25/2022. FINDINGS: TISSUE DENSITY: The breasts are heterogeneously dense, which may obscure small masses. Bilateral Breast Mammographic Findings: No significant masses, calcifications or other abnormalities are identified. Stable nodular masslike densities are seen in both breasts. Benign-appearing round microcalcifications and macrocalcifications are seen in both breasts. A stable, partially obscured, 7 mm, isodense mass is seen in the inferior medial aspect of the right breast. BI/SCRN MAMM (CAD)W/KARINE BILAT IMPRESSION: Benign screening mammogram OVERALL FINAL ASSESSMENT BI-RADS 2: BENIGN RECOMMENDATION: Routine annual follow-up in 1 Year Additional Recommendation none A letter with findings and recommendations will be mailed to the patient. Reading Location: [id number]
== END | disposition home or self-care (01) ==
LOC: OPBI 16:35
PROVIDERS: PCP Family Medicine
DX: Z12.31 Encounter for screening mammogram for malignant neoplasm of breast (principal)
CPT/HCPCS: 77063; 77067